=== PATIENT | male | born 1980 | race Caucasian/White ===

== ENCOUNTER → 2020-03-06 07:48 | Outpatient (BNVA) | payer SELFPAY | DX: Z76.89 Persons encountering health services in other specified circumstances (principal) ==

== ENCOUNTER → 2020-08-08 15:19 | Outpatient (BNVA) | payer OTHER, SELFPAY | PROVIDERS: PCP Internal Medicine Hypertension Specialist; Visit Provider Physician Assistant ==

== ENCOUNTER → 2020-08-09 07:47 | Outpatient (BNVA) | payer OTHER, SELFPAY | PROVIDERS: PCP Internal Medicine Hypertension Specialist; Visit Provider Surgery ==

== ENCOUNTER 2020-08-17 06:43 | Outpatient (REF) | payer OTHER, SELFPAY ==
--- NOTE | ~2020-08-17 | XR_ITS ---
EXAMINATION: XR CHEST CLINICAL INFORMATION: Morbid obesity due to excess calories. COMPARISON: None TECHNIQUE: Two views of the chest were obtained. FINDINGS: No significant abnormality is noted involving the heart, lungs, mediastinum, bony thorax or soft tissues. XR/XR chest 2V IMPRESSION: Unremarkable examination.
--- NOTE | 2020-08-17 07:20 | ECG_ITS ---
Test Reason : OBESITY Blood Pressure : / mmHG Vent. Rate : 073 BPM Atrial Rate : 073 BPM P-R Int : 140 ms QRS Dur : 098 ms QT Int : 398 ms P-R-T Axes : 019 025 016 degrees QTc Int : 438 ms Normal sinus rhythm Normal ECG No previous ECGs available Referred By: Eliceo Moran Electronically Signed By:ADORE VEGA MD
[2020-08-17 07:38] LABS: MANUAL DIFF FLAG NO
[2020-08-17 07:45] LABS: Basophils Percent Auto 0.6 % (0-2); Eosinophils Absolute Auto 0.1 X10*3/uL (0.0-0.4); Eosinophils Percent Auto 1.3 % (0-4); Hematocrit 49.3 % (42-52); Hemoglobin 16.5 g/dl (14.0-18.0); Imm Gran Abs Auto 0.14 X10*3/uL (0.00-0.03); Lymphocytes Absolute Auto 2.7 X10*3/uL (1.2-4.9); Lymphocytes Percent Auto 38.2 % (20-40); Mean Corpuscular HGB Conc 33.5 g/dl (31.0-36.0); Mean Corpuscular Hemoglobin 29.6 pg (27.0-33.0); Mean Corpuscular Volume 88.4 fL (80-98); Mean Platelet Volume 11.4 fL (9.4-12.4); Monocytes Absolute Auto 0.7 X10*3/uL (0.1-1.2); Monocytes Percent Auto 9.3 % (2-11); Neutrophils Absolute Auto 3.4 X10*3/uL (2.0-8.3); Neutrophils Percent Auto 48.6 % (45-73); Platelet Count 118 X10*3/uL (160-400); Red Blood Count 5.58 X10*6/uL (4.60-5.80); Red Cell Distribution Width 12.8 % (11.0-16.0)
[2020-08-17 07:49] LABS: Estimated Average Glucose 111 mg/dL; Hemoglobin A1C 152.5867 umol/L; Hemoglobin A1c % 5.5 %
[2020-08-17 08:07] LABS: Alanine Aminotransferase 22 U/L (0-40); Albumin Level 4.3 g/dL (3.5-5.0); Alkaline Phosphatase 71 U/L (39-117); Anion Gap 14 (12-20); Aspartate Amino Transferase 18 U/L (5-37); Bilirubin Total 1.4 mg/dL (0.0-1.0); Blood Urea Nitrogen 22 mg/dL (9-16); C Reactive Protein 0.86 mg/dL (< or = 0.50); Calcium 9.3 mg/dL (8.4-10.2); Carbon Dioxide 25 mmol/L (22-29); Chloride 103 mmol/L (96-108); Cholesterol 202 mg/dL; Estimated Glomerular Filt Rate > 60; Glucose Random 99 mg/dL (60-115); HDL Cholesterol 37 mg/dL; Iron 81 mcg/dL (45-160); LDL Cholesterol Calculated 129 mg/dl; Percent Iron Saturation 28 % (15-50); Sodium 138 mmol/L (135-145); Total Iron Binding Capacity 291 mcg/dL (228-428); Triglycerides 182 mg/dL; Unsaturated Iron Binding 210 ug/dL
[2020-08-17 08:34] LABS: TSH reflex Free T4 1.31 uIU/mL (0.32-4.0); Vitamin D 25-OH Total 20.6 ng/mL (>30)
[2020-08-17 09:14] LABS: Ferritin 610 ng/mL (20-250)
[2020-08-17 09:24] LABS: Folate 8.5 ng/mL (> or = 4.0); Vitamin B12 254 pg/mL (200-900)
[2020-08-18 12:43] LABS: H Pylori Breath Test NOT DETECTED (NOT DETECTED)
[2020-08-18 15:57] LABS: Calcium (PTHI) 9.3 mg/dL (8.6-10.3); PTHI 61 pg/mL (14-64)
[2020-08-21 06:12] LABS: Vitamin B1 9 nmol/L (8-30)
[2020-08-21 17:06] LABS: Zinc 81 mcg/dL (60-130)
[2020-08-23 01:22] LABS: Vitamin A 43 mcg/dL (38-98)
== END 2020-08-17 06:44 | disposition home or self-care (01) ==
LOC: HO.LAB 06:43
PROVIDERS: PCP Internal Medicine; Visit Provider Surgery
DX: E66.01 Morbid (severe) obesity due to excess calories (principal); I10 Essential (primary) hypertension; G47.30 Sleep apnea, unspecified
CPT/HCPCS: 36415; 71046; 80053; 80061; 82306; 82607; 82728; 82746; 83013; 83036; 83525; 83540; 83970; 84425; 84443; 84590; 84630; 85025; 86140; 93005

== ENCOUNTER → 2020-08-23 15:02 | Outpatient (BNVA) | payer OTHER, SELFPAY | PROVIDERS: PCP Internal Medicine; Visit Provider Physician Assistant ==

== ENCOUNTER → 2020-08-31 15:11 | Outpatient (BNVA) | payer OTHER, SELFPAY | PROVIDERS: PCP Internal Medicine Hypertension Specialist; Referring Provider Internal Medicine; Visit Provider Dietitian, Registered | DX: E66.01 Morbid (severe) obesity due to excess calories (principal); Z68.43 Body mass index [BMI] 50.0-59.9, adult | CPT/HCPCS: 97802 ==

== ENCOUNTER → 2020-09-15 12:19 | Outpatient (BNVA) | payer OTHER, SELFPAY | PROVIDERS: PCP Internal Medicine; Referring Provider Internal Medicine; Visit Provider Surgery ==

== ENCOUNTER → 2020-09-27 08:13 | Outpatient (BNVA) | payer OTHER, SELFPAY | PROVIDERS: PCP Internal Medicine Hypertension Specialist; Visit Provider Dietitian, Registered | DX: E66.01 Morbid (severe) obesity due to excess calories (principal); I10 Essential (primary) hypertension; Z68.43 Body mass index [BMI] 50.0-59.9, adult | CPT/HCPCS: 97803 ==

== ENCOUNTER → 2020-10-06 07:03 | Outpatient (BNVA) | payer OTHER, SELFPAY | PROVIDERS: PCP Internal Medicine Hypertension Specialist; Visit Provider Surgery ==

== ENCOUNTER 2020-10-24 07:48 | Outpatient (REF) | payer OTHER, SELFPAY ==
--- NOTE | ~2020-10-24 | US_ITS ---
EXAMINATION: US COMPLETE ABDOMEN WITH LIVER ELASTOGRAPHY CLINICAL INFORMATION: Bariatric service evaluation. E66.01 COMPARISON: None. TECHNIQUE: Real-time imaging of the abdominal viscera. Noninvasive ultrasound liver fibrosis assessment is performed using Vandana ElastPQ point quantification shear wave elastography (pSWE) with a C5-2 MHz transducer. Multiple elastography samples are obtained. FINDINGS: PANCREAS: The visualized pancreas is normal in size and contour and there is no pancreatic ductal distention. The pancreatic tail is obscured by bowel gas and not completely imaged. ABDOMINAL AORTA: The proximal, middle, and distal aortic segments are normal in caliber. INFERIOR VENA CAVA: Visualized portions are normal. LIVER: Liver is normal in size and smooth in contour. There is mild increased hepatic parenchymal echogenicity suggesting hepatic steatosis. Minor focal sparing is seen subcapsular liver adjacent to gallbladder fossa. No focal parenchymal lesion. No intrahepatic ductal dilatation. The right lobe measures 17.0 cm in length. The left lobe measures 12.2 cm in length. Portal flow is towards the liver (hepatopetal). Shear wave liver elastography median stiffness is 1.41 m/s (reference: normal median stiffness is 1.3 m/s or less). IQR/median stiffness to assess sampling precision is 0.18 (reference: good quality data set is IQR/median stiffness of 0.15 or less). GALLBLADDER: Normal. The gallbladder is physiologically distended without evidence of stones, sludge, polyps, wall thickening or pericholecystic fluid. COMMON BILE DUCT: Borderline enlarged measuring 0.8 cm. No visible ductal calculus or sludge. No wall thickening. No intrahepatic ductal dilatation. RIGHT KIDNEY: Normal. No hydronephrosis. No renal calculi or focal parenchymal lesions. The kidney measures 12.6 cm in maximum dimension. LEFT KIDNEY: Normal. No hydronephrosis. No renal calculi or focal parenchymal lesions. The kidney measures 12.0 cm in maximum dimension. SPLEEN: Normal. The spleen measures 11.7 cm in maximum dimension. FREE FLUID: None. US/US abdomen comp w elastography IMPRESSION: 1. Liver normal in size and smooth in contour with increased echogenicity consistent with hepatic steatosis. 2. Liver elastography: In the absence of other known clinical signs, measurements rule out compensated advanced chronic liver disease. If there are known clinical signs, further testing may be needed for confirmation. 3. Mild enlargement common duct, 0.8 cm of doubtful significance. No intrahepatic ductal dilatation. Normal gallbladder. REFERENCE: Society of Radiologists in Ultrasound Liver Stiffness Thresholds (2020): LIVER STIFFNESS THRESHOLDS: *Liver Stiffness equal or less than 1.3 m/s: High probability of being normal. *Liver Stiffness less than 1.7 m/s: In the absence of other known clinical signs, rules out compensated advanced chronic liver disease. *Liver Stiffness 1.7-2.1 m/s: Suggestive of compensated advanced chronic liver disease but need further test for confirmation. *Liver Stiffness over 2.1 m/s: Rules in compensated advanced chronic liver disease. *Liver Stiffness over 2.4 m/s: Suggestive of clinically significant portal hypertension. QUALITY OF DATA SET: *IQR/Median value equal or less than 0.15 implies a quality data set. *IQR/Median value over 0.15 implies a poor quality data set. SIGNIFICANT CHANGE FROM PRIOR EXAM: Significant change if liver stiffness measurement is 10% or greater from prior exam. OTHER CONSIDERATIONS: The stage of liver fibrosis may be overestimated in the setting of acute hepatitis, liver inflammation, elevated liver function tests, hepatic vascular congestion, obstructive cholestasis, non-fasting state, and infiltrative diseases such as amyloidosis and lymphoma. In some patients with NAFLD, the liver stiffness thresholds for compensated advanced chronic liver disease may be lower. In causes other than viral hepatitis and NAFLD, liver stiffness thresholds are not well established.
--- NOTE | ~2020-10-24 | FL_ITS ---
EXAMINATION: XR GI SERIES CLINICAL INFORMATION: Moderate/severe obesity due to excess calories. COMPARISON: None TECHNIQUE: Routine upper GI air-contrast study was performed. FINDINGS: Following oral administration of thick barium and effervescent granules there is normal propagation of bolus from the oral cavity through the pharynx, esophagus into stomach without any evidence of obstruction, narrowing or stricture. On placing patient supine and prone lying the course, caliber and peristalsis of the stomach, duodenal bulb and the sweep is normal. The mucosal pattern of stomach and the duodenum is normal. FLUOROSCOPY TIME: 1.4 minutes DOSE AREA PRODUCT: 71.489 uGy-m2 (microgray-meter squared) FL/FL upper GI series IMPRESSION: Unremarkable upper GI air-contrast study.
== END 2020-10-24 07:49 | disposition home or self-care (01) ==
LOC: HO.US 07:48
PROVIDERS: Visit Provider Surgery
DX: Z01.818 Encounter for other preprocedural examination (principal); E66.01 Morbid (severe) obesity due to excess calories; K21.9 Gastro-esophageal reflux disease without esophagitis
CPT/HCPCS: 74240; 76705; 76981

== ENCOUNTER → 2020-10-31 08:06 | Outpatient (BNVA) | payer OTHER, SELFPAY | PROVIDERS: PCP Internal Medicine Hypertension Specialist; Visit Provider Dietitian, Registered | DX: E66.01 Morbid (severe) obesity due to excess calories (principal); Z68.43 Body mass index [BMI] 50.0-59.9, adult; Z71.3 Dietary counseling and surveillance | CPT/HCPCS: 97803 ==

== ENCOUNTER → 2020-11-15 07:08 | Outpatient (BNVA) | payer OTHER, SELFPAY | PROVIDERS: PCP Internal Medicine Hypertension Specialist; Visit Provider Surgery ==

== ENCOUNTER → 2020-12-11 08:05 | Outpatient (BNVA) | payer OTHER, SELFPAY | PROVIDERS: PCP Internal Medicine Hypertension Specialist; Visit Provider Surgery ==

== ENCOUNTER → 2021-01-01 12:44 | Outpatient (BNVA) | payer OTHER, SELFPAY | PROVIDERS: PCP Internal Medicine; Visit Provider Surgery ==

== ENCOUNTER 2021-01-11 07:28 | Outpatient (REF) | payer OTHER, SELFPAY ==
[2021-01-11 07:45] LABS: MANUAL DIFF FLAG NO
[2021-01-11 08:02] LABS: Basophils Percent Auto 0.3 % (0-2); Eosinophils Absolute Auto 0.1 X10*3/uL (0.0-0.4); Eosinophils Percent Auto 1.4 % (0-4); Hematocrit 49.4 % (42.0-52.0); Hemoglobin 16.6 g/dl (14.0-18.0); Imm Gran Abs Auto 0.08 X10*3/uL (0.00-0.03); Imm Gran Pct Auto 1.1 % (0.0-0.4); Lymphocytes Percent Auto 28.1 % (20-40); Mean Corpuscular HGB Conc 33.6 g/dl (31.0-36.0); Mean Corpuscular Hemoglobin 29.3 pg (27.0-33.0); Mean Corpuscular Volume 87.3 fL (80.0-98.0); Mean Platelet Volume 10.4 fL (9.4-12.4); Monocytes Absolute Auto 0.7 X10*3/uL (0.1-1.2); Monocytes Percent Auto 9.9 % (2-11); Neutrophils Percent Auto 59.2 % (45-73); Platelet Count 183 X10*3/uL (160-400); Red Blood Count 5.66 X10*6/uL (4.60-5.80); Red Cell Distribution Width 12.7 % (11.0-16.0); White Blood Count 7.3 X10*3/uL (4.8-10.8)
[2021-01-11 08:12] LABS: INTERNATIONAL NORM RATIO 1.2 (0.9-1.1); Prothrombin Time 13.6 SEC (9.9-13.0)
[2021-01-11 08:15] LABS: Partial Thromboplastin Time 45.1 SEC (24.1-38.0)
[2021-01-11 08:18] LABS: Estimated Average Glucose 100 mg/dL; Hemoglobin A1c % 5.1 %
[2021-01-11 08:27] LABS: Alanine Aminotransferase 22 U/L (0-40); Albumin Level 4.5 g/dL (3.5-5.0); Alkaline Phosphatase 74 U/L (39-117); Anion Gap 13 (12-20); Aspartate Amino Transferase 15 U/L (5-37); Bilirubin Total 1.5 mg/dL (0.0-1.0); Blood Urea Nitrogen 17 mg/dL (9-16); C Reactive Protein 0.79 mg/dL (< or = 0.50); Calcium 9.8 mg/dL (8.4-10.2); Carbon Dioxide 31 mmol/L (22-29); Chloride 100 mmol/L (96-108); Cholesterol 124 mg/dL; Estimated Glomerular Filt Rate > 60; Glucose Random 89 mg/dL (60-115); HDL Cholesterol 32 mg/dL; LDL Cholesterol Calculated 71 mg/dl; Potassium 3.9 mmol/L (3.3-5.1); Sodium 140 mmol/L (135-145); Total Protein 6.9 g/dL (6.5-8.0); Triglycerides 106 mg/dL
[2021-01-11 08:55] LABS: TSH reflex Free T4 1.37 uIU/mL (0.32-4.0)
[2021-01-11 09:57] LABS: Insulin 7 uU/mL (2-29)
== END 2021-01-11 07:29 | disposition home or self-care (01) ==
LOC: HO.LAB 07:28
PROVIDERS: PCP Internal Medicine; Visit Provider Surgery
DX: E66.01 Morbid (severe) obesity due to excess calories (principal); G47.30 Sleep apnea, unspecified; I10 Essential (primary) hypertension
CPT/HCPCS: 36415; 80053; 80061; 83036; 83525; 84443; 85025; 85610; 85730; 86140; 86850; 86900; 86901

== ENCOUNTER → 2021-01-12 13:14 | Outpatient (BNVA) | payer OTHER, SELFPAY | PROVIDERS: PCP Internal Medicine; Referring Provider Internal Medicine; Visit Provider Physician Assistant ==

== ENCOUNTER 2021-01-18 06:16 | Inpatient (IN) | payer OTHER, SELFPAY ==
[2021-01-05 10:57] VITALS: BMI 50.9
--- NOTE | 2021-01-15 14:35 | MHC.SHP ---
Pre-Procedural Eval Section A Date of Service: 01/15/21 The patient is an INPATIENT: Yes The History & Physical has been completed within 30 days and I have reviewed it.: Yes Section B Chief Complaint: Morbid Severe obesity Relevant Family History (Specify if Yes): No Relevant Social History: None Present Medications: None Medical History: No relevant PMH History of Previous Operations: No relevant previous surgery Allergies: Allergies Allergy/AdvReac Type Severity Reaction Status Date / Time No Known Allergies Allergy Verified 01/01/21 12:55 Review of Systems Sugical H&P ROS: Negative: Constitution, Cardiovascular, Respiratory, Neurological, Psychiatric, Hem-Onc, Allergic/Immunologic, Gastrointestinal, Genitourinary, Musculoskeletal, Integumentary, Endocrine and Eyes/Ears/Nose/Throat Exam Surgical H&P Exam: Normal: HEENT, Normal: Heart, Normal: Lungs, Normal: Extremities, Normal: Abdomen, Normal: Skin and Normal: Neurological Plan Diagnosis/Plan: Unchanged I have reviewed the history and physical and performed a pertinent physical examination on my patient. No changes have occurred unless specified.
[2021-01-18] VITALS (13 sets, daily range): BP systolic 132–158; BP diastolic 66–99; PULSE 55–80; RESP 16–22; TEMP 36.2–36.8; O2SAT 95–100
[2021-01-18 06:54] LABS: COVID-19 Test Negative (Negative)
[2021-01-18] MEDS: Lactated Ringers 1,000 ML 999 ML IV (06:57)
--- NOTE | 2021-01-18 07:15 | P.CONAN_ITS ---
HPI - Anesthesia Eval Consult details Narrative: 40 yo male patient for EGD, sleeve gastrectomy, possible diaphrag matic hernia repair, possible ventral hernia repair, possible open PMFSH Active Problems Active Problems: All Active Problems (Updated 01/05/21 @ 11:02 by Meg Lee RN) Vitamin B12 deficiency (Acute) Vitamin D deficiency (Acute) Adjustment disorder, unspecified (Acute) Sleep apnea (Acute). Did not follow up on starting CPAP use Hypertension (Acute) Morbid obesity (Acute) Cough for a few days, today productive of yellowish/greenish sputum. Daughter had URI over last week but resolved. Denies any fever or malaise. Cough worse in mornings. No h/o allergies. Lungs clear. Past Medical History Medical History (Updated 01/18/21 @ 10:47 by Eliceo Moran MD) COVID-19 vaccine series completed Hypertension Morbid obesity On beta dianna at home Sleep apnea Steatosis, liver Family History Family History Mother Hypertension Diabetes Breast cancer Father Hypertension Hyperlipidemia Brother No problems noted. Sister No problems noted. Daughter No problems noted. Family history of problems with anesthesia: No Surgical History Surgical History (Updated 01/18/21 @ 10:31 by Eleanor Devi PA-C) No significant past surgical history History of Problems with Anesthesia: No Social History Social History Are you a primary specialist wound care to a significant other at home: No Do you presently have visiting nurse or other home services: No Alcohol intake: never Patient Tobacco Use Status: Never used Tobacco Use of substances other than those prescribed or required for medical reasons: No Have you been hit, kicked, punched, or otherwise hurt by someone within the past year? If so, by whom?: No Are you DNR?: No Advance Directives: No Advance Directives Information Provided: Yes (Mailed w/ Pre-op instructions) Advance Directives on File: No Recently lost weight without trying: No How much weight loss: 34pounds or more Eating poorly because of decreased appetite: No Nutrition screen score: 4 Nutrition Risks: No Nutritional Risk Meds Allergies Allergy/AdvReac Type Severity Reaction Status Date / Time No Known Allergies Allergy Verified 01/01/21 12:55 Active Medications: Current Medications Lactated Ringer's (Lr) 1,000 mls @ 999 mls/hr IV .Q1H1M LEANNE Stop: 01/18/21 07:30 Last Admin: 01/18/21 06:57 Dose: 999 mls/hr Documented by: Home Medications Medication Instructions Recorded Confirmed Last Taken Type losartan 25 mg tablet 25 mg PO DAILY 08/09/20 01/05/21 Unknown History metoprolol tartrate 50 mg tablet 50 mg PO DAILY 08/09/20 01/05/21 01/18/21 History Exam Exam Date and Time: January 18, 2021 0715 Height,Weight and Vital Signs: Height 5 ft 11 in Weight 165.561 kg Pertinent Lab Results Pertinent Lab Results: Laboratory Tests 01/11/21 01/18/21 07:45 06:16 COVID-19 ([facility]) Negative COVID-19 Clin Com See Note Blood Type O Positive Antibody Screen NEGATIVE Labs 01/11/21 Reviewed XRay Report Date of Service: 08/17/20 Procedure(s): XR chest 2V FINDINGS: No significant abnormality is noted involving the heart, lungs, mediastinum, bony thorax or soft tissues. Date of Service: 08/17/20 Procedure(s): ECG 12 lead EKG? Normal sinus rhythm Normal ECG No previous ECGs available ? Narrative Narrative: Patient with ? early URI vs allergies. Lungs CTAB.Dr Moran aware and wishes to proceed. Airway Mallampati Class: II TM Dist: >3cm Neck ROM: Full Heart: RRR Lungs: CTAB Assessment and Plan Assessment Anesthesia Assessment: Anesthesia Plan Discussed and Chart Reviewed Final Anesthetic Review Family History of Problems with Anesthesia: No History of Problems with Anesthesia: No NPO: Yes ASA Class: III Final Preanesthetic Review: No Changes in Pt Med Stat, Meds/Allgs Chart Reviewed, Consent Obtained/Reviewed and Anes Risks/Benef Reviewed Patient Risk: Intermediate Procedure Risk: Intermediate Assessment/Block/Sedation in SS: Assess/Block/Sedation-SS Anesthetic Plan Anesthetic Plan: GA Disposition: Standard PACU and Inp. Admit - Standard Bed
--- NOTE | 2021-01-18 10:35 | PM.DS ---
DS: Providers Provider Date of Service: 01/19/21 Date of admission: 01/18/21 06:16 Primary care physician: Marnie Alonso MD DS: Summary Hospital Course Hospital Course: ADMITTING DIAGNOSIS: morbid obesity, RUPERTO, HTN DISCHARGE DIAGNOSIS: same, s/p laparoscopic sleeve gastrectomy PAST SURGICAL HISTORY: none PROCEDURE: upper endoscopy, laparoscopic sleeve gastrectomy DISCHARGE SUMMARY: History of Present Illness: The patient is a 40 year-old woman with a BMI of 60.5 kg/m2 and associated co-morbidities as described above. The patient had extensive work-up,lost 68.4 lbs preoperatively and was electively scheduled for laparoscopic, possible open sleeve gastrectomy and gastropexy. Risks and complications of the surgery were discussed with the patient in advance, particularly the possibility of , pulmonary embolism, anastomotic leak, bleeding, bowel injury, GERD, cardiac, renal or pulmonary complications. The patient understood all the risks and was in agreement with the surgical plan. Hospital Course: The patient underwent an uneventful laparoscopic sleeve gastrectomy with gastropexy on the day of admission. Postoperatively, the patient was transferred to the surgical floor. The patient received IV Acetaminophen and IV dilaudid for pain control. Patient was started on bariatric phase 1 diet POD #0. On postoperative day one, the patient was feeling well without nausea, vomiting, fevers, or tachycardia. The patient had some mild incisional pain and the abdomen was soft. On the morning of postoperative day one, the patient was continued on 1 ounce of water or ice every half hour. During the day, the patient did fairly well, having some incisional pain, but able to ambulate adequately and to tolerate liquids well. Since the patient is doing well, we decided that the patient was ready to be discharged. The patient was given instructions to follow-up with me next week and to call my office for any fever over 101, persistent abdominal pain, nausea, vomiting, GERD, symptoms of DVT such as calf tenderness, or leg swelling, or pulmonary embolism such as chest pain or shortness of breath. The patient was also instructed to drink 40-60 ounces of liquids per day using the 1-ounce cups. The patient had been given prescriptions for Tylenol for pain, Zofran prn for nausea, and pantoprazole and carafate previously. The patient was encouraged to ambulate and use the incentive spirometer. The patient was allowed to shower, but no baths, and encouraged to stay active at home. All of these instructions were given to the patient personally. All questions were answered and the patient understood all instructions, the instructions were also given to the patient in print. Time Spent with Patient Time attestation: Total time spent providing and/or coordinating discharge services: Discharge coordination time: Less than 30 minutes Quality: Stroke Does the patient have a stroke diagnosis?: No Physical Exam Vital Signs: Vital Signs: Last Vital Signs Temp 97.1 F 01/18/21 07:22 Pulse 75 01/18/21 07:22 Resp 18 01/18/21 07:22 BP 146/85 H 01/18/21 07:22 Pulse Ox 96 01/18/21 07:22 Body Mass Index 50.9 DS: Data Data Completed and Pending Pending studies at discharge: Pending at discharge 01/18/21 10:08 Surgical [PTH] Routine Labs on day of discharge: Laboratory Results - last 24 hr 01/18/21 06:16 COVID-19 ([facility]) Negative COVID-19 Clin Com See Note Discharge Plan Discharge Anticipated Discharge Date/Time: 01/19/21 10:31 Patient Disposition: Home, Self-Care Discharge Diagnosis: s/p sleeve gastrectomy Referrals: Marnie Alonso MD [Primary Care Provider] - 1 Week Discharge Medications: Continued metoprolol succinate 100 mg tablet extended release 24 hr 1 tab PO DAILY RF: 0 losartan 25 mg tablet 25 mg PO DAILY RF: 0 pantoprazole 40 mg tablet,delayed release (DR/EC) 40 mg PO DAILY Qty: 30 RF: 2 sucralfate 100 mg/mL suspension 10 ml PO BID Qty: 400 RF: 2 ondansetron HCl [Zofran] 4 mg tablet 4 mg PO Q12H Qty: 20 RF: 0 Discontinued mecobalamin (vitamin B12) 1,000 mcg tablet,disintegrating 1,000 mcg sublingual DAILY Qty: 30 RF: 2 cholecalciferol (vitamin D3) 125 mcg (5,000 unit) capsule 125 mcg PO DAILY Qty: 30 RF: 2 polyethylene glycol 3350 [Miralax] 17 gram powder in packet 17 g PO DAILY Qty: 14 RF: 0 Discharge Orders: Discharge Order (Routine); Ordered 01/19/21 Ordered By: Eliceo Moran Diet: other Activity on Discharge: No heavy lifting Stand Alone Forms: Patient Portal Discharge page Care Plan Goals: weight loss Health Concerns: morbid obesity Plan of Treatment: No tub baths, sex or returning to work until discussed at first post op appointment. No exercise, alcohol, tobacco or illegal drug use. Continue to use incentive spirometer hourly while awake. Walk in home for 5- 10 minutes every 2 hours during the first week. Continue phase 1 diet today and start phase 2 diet tomorrow morning. Follow all instructions in the bariatric handbook and call with any questions. 1. Please call your doctor or come back to the emergency room should any new symptoms arise. 2. You will receive a courtesy call from [facility] 24-48 hours after discharge. 3. Activity: abstain from alcohol, practice limited stair climbing, no bending, no driving, no exercise, no illicit substances, no lifting, no sex, no tub bath, no work. 4. Diet: continue as discussed with Dr. Moran. 5. Dressing Change/Wound Care: Do not change or remove surgical dressings unless they are wet or soiled. 6. Call your doctor if: - Your temperature exceeds 101.5 F - You experience excessive pain or swelling - You have an unexpected reaction to medication - You have excessive bleeding - You experience continued vomiting/nausea - Your incision begins to separate - Your incision shows signs of infection such as increased redness, swelling, excessive pain, heat, or drainage (light blood or clear fluid is normal) 7. General instructions: No lifting greater than 5 lbs for the next 4 weeks[address] driving within 24 hours of taking narcotic pain medications. If you do not move your bowels in the next 2 days, please take milk of magnesia over the counter. Please follow the post op diet and do not advance your diet until you are seen in the office in about 2 weeks. Please walk around your home every hour or two to prevent blood clots from forming in your legs. You do not need to wake from sleeping to walk. Please sleep in a bed or couch to prevent kinking at the hips and knees. Please take your incentive spirometer (your lung computer numerical control machinist) home with you and use it for the next few days to prevent pneumonias. You may shower, no hot tubs, baths or swimming pools. Please call the office with any questions or concerns such as increasing abdominal pain, fever, chills, shortness of breath, chest pain, leg pain or swelling, or redness or drainage from your incisions. Do not hesitate to contact the office with any questions at . The patient's medical history has been reviewed and they are considered low risk for post op DVT and therefore DVT prophylaxis is not considered necessary. Travel after surgery was reviewed. The patient has not disclosed any travel plans during the first 30 days after surgery and they have been advised that within the first 30 days after surgery any bus, plane, train or car travel over 2 hours in duration is contraindicated due to the possibility of developing blood clots from immobility. Any travel, needs to include periods of ambulation of 10 minutes in duration every 2 hours. The patient was instructed to discuss any plans for travel during this period with their bariatric surgeon. Assessment: stable post op sleeve gastrectomy Discharge Date/Time: 01/19/21 10:07
[2021-01-18] MEDS: HYDROmorphone HCl 0.5 MG/0.5 ML SYRINGE 0.25 MG IVPUSH ×4 (10:40→22:09)
--- NOTE | 2021-01-18 10:41 | P.BOP_ITS ---
Brief Operative Note Date of Service: 01/18/21 Pre-op diagnosis: Morbid obesity with comorbidities (see below) Post-op diagnosis: same (& congenital abdominal adhesions) Procedure: INITIAL PATIENT BMI ON PRESENTATION AT OUR OFFICE: 60.5 kg/m2 LAST BMI BEFORE SURGERY: 49.2 kg/m2 COMORBIDITIES: sleep apnea on CPAP, hypertension, liver steatosis The patient participated in an intensive weekly lifestyle ?intervention and exercise program during which the patient ?has lost between the initial office visit and the last preoperative visit 81.2lbs, or 18.7% of initial actual body weight. The patient met the BMI-criteria for bariatric surgery based on the BMI on initial presentation. The patient should not be penalized for achieving such weight loss because ?it is not sustainable long-term without surgical intervention and it was achieved in preparation for bariatric surgery ?under my direction and based on my published research ([email or web address] and? [email or web address]/pdf ) ?that a 10% preoperative weight loss improves long-term weight loss after surgery and reduces perioperative complications.? Insurance carriers such as [facility] have endorsed my recommendations ?and have included in their policies criteria to include a 10% preoperative weight loss requirement. PROCEDURE: Esophago-gastroscopy, laparoscopic repair of incarcerated diaphragmatic hernia, laparoscopic lysis of adhesions, laparoscopic sleeve gastrectomy and laparoscopic gastropexy INDICATIONS: This is a 40 year-old male who was electively scheduled for laparoscopic, possibly open sleeve gastrectomy. The risks and complications of the procedure were discussed with the patient in advance, particularly the possibility of ; pulmonary embolism; staple line leak; bleeding; GERD; cardiac, pulmonary, or renal complications; as well as long-term problems such as insufficient weight loss, vitamin deficiency, strictures, or ulcers. The patient understood all the risks, and was in agreement to proceed with surgery. DESCRIPTION OF PROCEDURE: After informed consent was obtained from the patient, the patient was given preoperative antibiotics, and was transferred to the operating room. After successful induction of general anesthesia, pneumatic compressive devices were placed on both lower extremities. An upper endoscopy was performed next. The oropharynx and esophagus appeared to be within normal limits. There was no diaphragmatic hernia present, consistent with the findings of the preoperative upper GI. The stomach was entered. Then after all fluid and air were suctioned and the stomach was fully decompressed, the scope was withdrawn and secured in the mid esophagus. The patient was then prepped and draped in the usual sterile manner, and abd ominal access was established at the right upper quadrant with the Lila technique. A 12 mm blunt port was inserted, and the abdomen was insufflated with CO2 to a pressure of 15 mmHg. Under direct visualization, additional ports were placed, specifically two 5 mm Versi-step ports to the left upper quadrant, and a 5 mm Versi-Step port to the right upper quadrant. 1% lidocaine plain was used to infiltrate all port sites as well as all fascia defects. Using the EndoClose suture passer device, I placed a #1 Polysorb tie across the falciform ligament in order to retract it up against the abdominal wall and prevent injury of the ligament with our instruments during the procedure. Following that, the patient was placed in a steep reverse Trendelenburg position. An additional 5 mm port was placed to the right flank for the Mediflex retractor that was used to retract the left lobe of the liver. The gastro-esophageal fat pad was opened with the ultrasonic device (Thunderbeat, Olympus) and the anterior esophagus and hiatus were exposed. The angle of His was opened with the ultrasonic device the fundus of the stomach from any diaphragmatic and splenic attachments. I then opened the gastrocolic ligament between the transverse colon and the greater curvature of the stomach with the ultrasonic device to enter the lesser sac and facilitate the ligation of the short gastric vessels. I started at a mid-point along the greater curvature and using the Thunderbeat, all short gastric vessels were divided all the way to the angle of His until the left britni was completely dissected at its entirety. I then divided the gastro-colic ligament distally to a distance of about 3-4 cm proximal to the esophagus. There were extensive congenital adhesions between the pancreas and posterior gastric wall. Those were lysed completely with the ultrasonic device. Adhesiolysis took approximately 45 min to complete.? The stomach was then divided transversely with one Endo JONATHAN-45 purple and two JONATHAN-45 orange and three JONATHAN-60 articulating orange loads using the AEON stapler and loads. Every effort was made that the gastric sleeve had a tubular shape and an even caliber throughout. Once the sleeve resection was completed, the staple line of the gastric sleeve was reinforced with Hemoclips. The resected stomach was retrieved without difficulty from the Lila port. A gastropexy was then performed in order to prevent postoperative GERD and partial gastric volvulus. Several interrupted 2.0 Surgidac sutures were placed between the sleeve's staple line and the previously divided greater omentum and gastro-colic ligament using the Endo-Stitch device. ?An upper endoscopy was performed. There was no narrowing at the GE junction. The scope was easily advanced all the way to the pylorus which was clearly visualized. There was no narrowing anywhere and the sleeve's caliber was even throughout. The sleeve's staple line was inspected and there was no evidence of ischemia, bleeding or dehiscence. At that point the gastroscope was withdrawn from the patient?s mouth while we were decompressing the bowel and the stomach from any remaining air. I looked into the lesser sac to see how the sleeve was situating and it was situating well. There was no bleeding from the staple line, spleen, or short gastric vessels. The Mediflex retractor was removed, and the undersurface of the liver was inspected and there was no bleeding. The patient was placed in supine position. I closed the fascial defect of the 12 mm port site with a figure of eight #1 Polysorb suture. Then 100 cc 0.25 % Marcaine plain with 10 mg of Dexamethasone were used to infiltrate the fascial closure as well as all skin incisions. At this point, the abdomen was deflated, all ports were removed under direct visio n, and no bleeding was noted from any of the port sites. The skin incisions were irrigated with saline and were closed with 4-0 absorbable monofilament sutures. Steri-Strips and OpSites were used to cover all incisions. The patient was extubated and was transferred in stable condition to the recovery room for further care. I was present and performed all nieto parts of the procedure. Ms. Devi was the acute care certified nursing assistant. There were no residents to assist with this case. Andrea Moran MD, PhD, FACS Surgeon: Eliceo Moran MD Anesthesia: GETA, local and other (TAP block) Was an Breast Splitter used for this Procedure?: Yes Breast Splitter: Eleanor Devi Estimated blood loss (mL): 10 IV fluids (mL): 3,000 Urine output (mL): 0 (No [place] to record) Pathology: other (Stomach) Condition: stable Disposition: PACU
[2021-01-18] MEDS: Famotidine/PF 20 MG/2 ML VIAL IVPUSH ×2 (10:42→20:38)
--- NOTE | 2021-01-18 10:45 | PM.PNGS ---
Subjective Subjective Date of Service: 01/19/21 Interval history: Patient has mild incisional pain, but was able to ambulate and use the incentive spirometer. He is tolerating phase 1 bariatric diet Physical Exam Vital Signs: Vital Signs: Last Vital Signs Temp 97.1 F 01/18/21 07:22 Pulse 75 01/18/21 07:22 Resp 18 01/18/21 10:40 BP 146/85 H 01/18/21 07:22 Pulse Ox 96 01/18/21 07:22 Body Mass Index 50.9 GI: Inspection: Yes normal to inspection and Yes incision (clean, dry and intact) Extrem: Right lower extremity: normal to inspection (no calf tenderness) Left lower extremity: normal to inspection (no calf tenderness) Procedures Date of Service Date of Service: 01/19/21 Progress Note: A&P Assessment and plan (1) S/P laparoscopic sleeve gastrectomy: Status: Acute Assessment and Plan: s/p laparoscopic sleeve gastrectomy, lysis of adhesions and gastropexy Doing well Check am labs. If OK, will discharge home? (2) Morbid obesity: Status: Acute (3) Hypertension: Status: Acute (4) Sleep apnea: Status: Acute (5) Steatosis, liver: Status: Acute (6) Congenital intra-abdominal adhesions: Status: Acute Fall Risk Details Current Medications: Current Medications Albuterol Sulfate (Albuterol Sulfate (0.083%) 2.5 Mg/3 Ml Vial.Neb) 2.5 mg INHALE ONCE PRN PRN Reason: Wheezing Famotidine (Famotidine/Pf 20 Mg/2 Ml Vial) 20 mg IVPUSH BID [facility] Last Admin: 01/18/21 10:42 Dose: 20 mg Documented by: Fentanyl (Fentanyl Citrate/Pf 100 Mcg/2 Ml Vial) 25 mcg IVPUSH Q5M PRN; Protocol PRN Reason: Pain, Moderate (Pain Scale 4-6 Hydromorphone HCl (Hydromorphone Hcl 0.5 Mg/0.5 Ml Syringe) 0.25 mg IVPUSH Q5M PRN; Protocol PRN Reason: Pain, Severe (Pain Scale 7-10) Last Admin: 01/18/21 10:40 Dose: 0.25 mg Documented by: Lactated Ringer's (Lr) 1,000 mls @ 100 mls/hr IVCONT .Q10H LEANNE Promethazine HCl 6.25 mg/ (Sodium Chloride) 50.25 mls @ 201 mls/hr IV ONCE PRN PRN Reason: Nausea and Vomiting Lactated Ringer's (Lr) 1,000 mls @ 100 mls/hr IVCONT .Q10H LEANNE Metoclopramide HCl (Metoclopramide Hcl 10 Mg/2 Ml Vial) 10 mg IVPUSH Q6H PRN PRN Reason: Nausea Ondansetron HCl (Ondansetron Hcl 4 Mg/2 Ml Vial) 4 mg IVPUSH ONCE PRN PRN Reason: Nausea and Vomiting Time Spent With Patient Time: Total time spent is greater than 50% in coordination of care (as documented) at patient's floor/unit and/or counseling patient: Time with patient: less than 15 minutes Quality Stroke Does the patient have a stroke diagnosis?: No VTE Prior VTE?: No VTE Risk Level:: Surgical - moderate VTE Device Contraindication: N/A - Device Ordered VTE Drug Contraindication: Treatment Not Indicated
[2021-01-18 11:16] LABS: Hematocrit 47.3 % (42.0-52.0); Hemoglobin 15.5 g/dl (14.0-18.0)
[2021-01-18 11:30] LABS: Anion Gap 14 (12-20); Blood Urea Nitrogen 13 mg/dL (9-16); Calcium 9.2 mg/dL (8.4-10.2); Carbon Dioxide 28 mmol/L (22-29); Chloride 98 mmol/L (96-108); Creatinine Clr Calc Pharmacy 151.6; Estimated Glomerular Filt Rate > 60; Glucose Random 135 mg/dL (60-115); Potassium 4.4 mmol/L (3.3-5.1); Sodium 136 mmol/L (135-145)
[2021-01-18] MEDS: Lactated Ringers 1,000 ML 100 ML IVCONT ×2 (11:46→20:45)
[2021-01-18] MEDS: ceFAZolin Sodium/Dextrose,Iso 2 GM/50 ML PIGGYBACK IV (13:21)
[2021-01-18] MEDS: Losartan Potassium 25 MG TABLET PO (16:02)
[2021-01-18] MEDS: ondansetron HCL 4 MG/2 ML VIAL IVPUSH (20:37)
[2021-01-19] VITALS: BP 141/81; PULSE 68; RESP 17; TEMP 36.6; O2SAT 94
[2021-01-19 04:00] VITALS: BP 144/74; PULSE 52; RESP 17; TEMP 36.3; O2SAT 96
[2021-01-19] MEDS: ondansetron HCL 4 MG/2 ML VIAL IVPUSH (04:11)
--- NOTE | 2021-01-19 04:53 | PC.NURSE ---
Pt misunderstood the surgeon regarding how much to drink and document. When reviewing expectations at the beginning of the shift, we discovered the discrepancy. Pt has been maintaining his PO check list and drinking 30ml/30 mins WA. I charted it in the computer under I&O's. Pt ambulated in the handley with me at the beginning of the shift with no issues. Pt told to ambulate again during the night when he woke up to go to the bathroom. Pt ambulated several times around the nurses station. IV fluids and IV tylenol as ordered. Pt voiding without issues. Five 2X2 dressings on abdomen-CD&I. Abdominal binder in place. Pt obtains a volume of 1500 on IS and encouraged to use Q1 hour WA-pt states he has. See MAR for pain mgmt. No c/o pain/nausea at this time. Will continue to monitor.
[2021-01-19 05:36] LABS: MANUAL DIFF FLAG NO
[2021-01-19 05:43] LABS: Basophils Percent Auto 0.1 % (0-2); Eosinophils Percent Auto 0.1 % (0-4); Hematocrit 44.3 % (42.0-52.0); Hemoglobin 14.7 g/dl (14.0-18.0); Imm Gran Abs Auto 0.11 X10*3/uL (0.00-0.03); Imm Gran Pct Auto 0.9 % (0.0-0.4); Lymphocytes Absolute Auto 1.6 X10*3/uL (1.2-4.9); Mean Corpuscular HGB Conc 33.2 g/dl (31.0-36.0); Mean Corpuscular Hemoglobin 29.1 pg (27.0-33.0); Mean Corpuscular Volume 87.5 fL (80.0-98.0); Mean Platelet Volume 10.2 fL (9.4-12.4); Monocytes Absolute Auto 1.1 X10*3/uL (0.1-1.2); Monocytes Percent Auto 8.7 % (2-11); Neutrophils Absolute Auto 9.4 x10*3/uL (2.0-8.3); Neutrophils Percent Auto 77.2 % (45-73); Platelet Count 178 X10*3/uL (160-400); Red Blood Count 5.06 X10*6/uL (4.60-5.80); Red Cell Distribution Width 13.3 % (11.0-16.0); White Blood Count 12.1 X10*3/uL (4.8-10.8)
[2021-01-19 05:59] LABS: Anion Gap 16 (12-20); Blood Urea Nitrogen 12 mg/dL (9-16); Calcium 9.2 mg/dL (8.4-10.2); Carbon Dioxide 24 mmol/L (22-29); Chloride 102 mmol/L (96-108); Creatinine Clr Calc Pharmacy 170.2; Estimated Glomerular Filt Rate > 60; Glucose Random 99 mg/dL (60-115); Potassium 4.4 mmol/L (3.3-5.1); Sodium 138 mmol/L (135-145)
[2021-01-19] MEDS: Lactated Ringers 1,000 ML 100 ML IVCONT (06:35)
[2021-01-19] MEDS: Famotidine/PF 20 MG/2 ML VIAL IVPUSH (07:31)
[2021-01-19] MEDS: Losartan Potassium 25 MG TABLET PO (07:31)
[2021-01-19] MEDS: Metoprolol Succinate ER 100 MG TAB.ER.24H PO (07:31)
[2021-01-19 08:00] VITALS: BP 135/73; PULSE 52; RESP 18; TEMP 36.2; O2SAT 99
--- NOTE | 2021-01-19 08:15 | HO.POSTANES ---
Post Anesthesia Evaluation Post Anesthesia Evaluation Vital Signs: Vital Signs Temp Pulse Resp BP Pulse Ox 01/19/21 08:00 97.2 F 52 18 135/73 99 01/19/21 04:00 97.4 F 52 17 144/74 H 96 01/19/21 00:00 97.8 F 68 17 141/81 H 94 Anesthesia: General Endotracheal-GETA Mental Status: Awake Pain Control: Satisfactory Nausea/Vomiting: None Hydration: Adequate Anesthesia-Related Issues: No Anes. Related Issues
--- NOTE | 2021-01-19 08:45 | MHC.CM.PN ---
PATIENT IS FULLY INDEPENDENT WITH NO DME OR VNA SERVICES. IS HCP AND A COPY IS REQUESTED. PLAN IS FOR DISCHARGE HOME TODAY - SELF CARE. WILL PROVIDE TRANSPORTATION. RN AWARE OF PLAN. PATIENT IS FULLY VACCINATED AGAINST COVID-19 SECOND DOSE WAS IN JUNE 2020. HE REPORTS THAT HE IS DUE FOR HIS BOOSTER
== END 2021-01-19 10:07 | disposition home or self-care (01) | DRG 621 ==
LOC: HO.SSSA 10:33 → HO.S3 10:47
PROVIDERS: Physician Assistant; Admitting Provider Surgery; PCP Internal Medicine; Visit Provider Surgery
PROC: 0DB64Z3 Excision of Stomach, Percutaneous Endoscopic Approach, Vertical (ICD-10-PCS; CPT 43845; principal; 2021-01-18 07:30)
DX: E66.01 Morbid (severe) obesity due to excess calories (principal); K76.0 Fatty (change of) liver, not elsewhere classified; K66.0 Peritoneal adhesions (postprocedural) (postinfection); I10 Essential (primary) hypertension; G47.30 Sleep apnea, unspecified; Z99.89 Dependence on other enabling machines and devices; Z20.822 Contact with and (suspected) exposure to COVID-19; Z68.42 Body mass index [BMI] 45.0-49.9, adult; Z79.899 Other long term (current) drug therapy
CPT/HCPCS: 36415; 80048; 85014; 85018; 85025; 86850; 86900; 86901; 87635; 88307; 88342; 99024; A4649; J0131; J0690; J1100; J1170; J2250; J2405; J2550; J3010

== ENCOUNTER → 2021-01-24 07:53 | Outpatient (BNVA) | payer OTHER, SELFPAY | PROVIDERS: PCP Internal Medicine; Referring Provider Internal Medicine; Visit Provider Surgery ==

== ENCOUNTER → 2021-02-23 08:03 | Outpatient (BNVA) | payer OTHER, SELFPAY | PROVIDERS: PCP Internal Medicine; Visit Provider Surgery ==

== ENCOUNTER → 2021-03-23 08:17 | Outpatient (BNVA) | payer OTHER, SELFPAY | PROVIDERS: PCP Internal Medicine; Referring Provider Internal Medicine; Visit Provider Physician Assistant Surgical ==

== ENCOUNTER → 2021-03-30 07:56 | Outpatient (BNVA) | payer OTHER, SELFPAY | PROVIDERS: PCP Internal Medicine; Visit Provider Surgery ==

== ENCOUNTER → 2021-04-06 08:29 | Outpatient (BNVA) | payer OTHER, SELFPAY | PROVIDERS: PCP Internal Medicine; Referring Provider Internal Medicine; Visit Provider Physician Assistant ==

== ENCOUNTER → 2021-04-20 08:15 | Outpatient (BNVA) | payer OTHER, SELFPAY | PROVIDERS: PCP Internal Medicine; Visit Provider Physician Assistant ==

== ENCOUNTER → 2021-04-27 08:13 | Outpatient (BNVA) | payer OTHER, SELFPAY | PROVIDERS: PCP Internal Medicine; Referring Provider Internal Medicine; Visit Provider Physician Assistant ==

== ENCOUNTER → 2021-05-18 08:09 | Outpatient (BNVA) | payer OTHER, SELFPAY | PROVIDERS: PCP Internal Medicine; Visit Provider Physician Assistant Surgical ==

== ENCOUNTER → 2021-05-21 08:34 | Outpatient (BNVA) | payer OTHER, SELFPAY | PROVIDERS: PCP Internal Medicine; Visit Provider Surgery | DX: Z13.89 Encounter for screening for other disorder (principal) ==

== ENCOUNTER → 2021-06-18 08:16 | Outpatient (BNVA) | payer OTHER, SELFPAY | PROVIDERS: PCP Internal Medicine; Visit Provider Physician Assistant Surgical | DX: Z13.89 Encounter for screening for other disorder (principal) ==

== ENCOUNTER 2021-07-17 08:19 | Outpatient (REF) | payer OTHER, SELFPAY ==
[2021-07-17 09:18] LABS: MANUAL DIFF FLAG NO
[2021-07-17 09:51] LABS: Basophils Percent Auto 0.5 % (0-2); Eosinophils Absolute Auto 0.1 X10*3/uL (0.0-0.4); Hematocrit 44.7 % (42.0-52.0); Hemoglobin 14.9 g/dl (14.0-18.0); Imm Gran Abs Auto 0.02 X10*3/uL (0.00-0.03); Imm Gran Pct Auto 0.3 % (0.0-0.4); Lymphocytes Absolute Auto 2.4 X10*3/uL (1.2-4.9); Lymphocytes Percent Auto 41.3 % (20-40); Mean Corpuscular HGB Conc 33.3 g/dl (31.0-36.0); Mean Corpuscular Volume 90.1 fL (80.0-98.0); Mean Platelet Volume 10.1 fL (9.4-12.4); Monocytes Absolute Auto 0.5 X10*3/uL (0.1-1.2); Monocytes Percent Auto 8.4 % (2-11); Neutrophils Absolute Auto 2.8 x10*3/uL (2.0-8.3); Neutrophils Percent Auto 48.5 % (45-73); Platelet Count 194 X10*3/uL (160-400); Red Blood Count 4.96 X10*6/uL (4.60-5.80); Red Cell Distribution Width 13.5 % (11.0-16.0); White Blood Count 5.7 X10*3/uL (4.8-10.8)
[2021-07-17 10:17] LABS: Estimated Average Glucose 94 mg/dL; Hemoglobin A1c % 4.9 %
[2021-07-17 10:26] LABS: Anion Gap 13 (12-20); Blood Urea Nitrogen 21 mg/dL (9-16); Calcium 9.7 mg/dL (8.4-10.2); Carbon Dioxide 28 mmol/L (22-29); Chloride 102 mmol/L (96-108); Cholesterol 131 mg/dL; Estimated Glomerular Filt Rate > 60; Glucose Random 83 mg/dL (60-115); HDL Cholesterol 44 mg/dL; Iron 79 mcg/dL (45-160); LDL Cholesterol Calculated 73 mg/dl; Percent Iron Saturation 34 % (15-50); Potassium 4.2 mmol/L (3.3-5.1); Sodium 139 mmol/L (135-145); Total Iron Binding Capacity 233 mcg/dL (228-428); Triglycerides 71 mg/dL; Unsaturated Iron Binding 154 ug/dL
[2021-07-17 10:36] LABS: Ferritin 737 ng/mL (20-250); Vitamin D 25-OH Total 45.5 ng/mL (>30)
[2021-07-17 10:44] LABS: Folate 18.3 ng/mL (> or = 4.0); Vitamin B12 652 pg/mL (200-900)
[2021-07-17 11:08] LABS: Insulin 3 uU/mL (2-29)
[2021-07-19 14:46] LABS: Calcium (PTHI) 9.7 mg/dL (8.6-10.3); PTHI 19 pg/mL (16-77)
[2021-07-22 10:17] LABS: Vitamin B1 32 nmol/L (8-30)
[2021-07-22 15:32] LABS: Zinc 82 mcg/dL (60-130)
[2021-07-23 12:31] LABS: Vitamin A 41 mcg/dL (38-98)
== END 2021-07-17 08:20 | disposition home or self-care (01) ==
LOC: HO.LAB 08:19
PROVIDERS: PCP Internal Medicine; Visit Provider Physician Assistant Surgical
DX: E66.01 Morbid (severe) obesity due to excess calories (principal); I10 Essential (primary) hypertension; E53.8 Deficiency of other specified B group vitamins; E55.9 Vitamin D deficiency, unspecified; Z68.34 Body mass index [BMI] 34.0-34.9, adult; Z98.84 Bariatric surgery status; Z79.899 Other long term (current) drug therapy
CPT/HCPCS: 36415; 80048; 80061; 82306; 82607; 82728; 82746; 83036; 83525; 83540; 83970; 84425; 84443; 84590; 84630; 85025; 86140

== ENCOUNTER → 2022-02-25 09:01 | Outpatient (BNVA) | payer OTHER, SELFPAY | PROVIDERS: PCP Internal Medicine; Visit Provider Dietitian, Registered | DX: E66.3 Overweight (principal); Z68.26 Body mass index [BMI] 26.0-26.9, adult | CPT/HCPCS: 97803 ==

== ENCOUNTER → 2022-04-16 08:07 | Outpatient (BNVA) | payer OTHER, SELFPAY | PROVIDERS: PCP Internal Medicine; Visit Provider Dietitian, Registered | DX: E66.3 Overweight (principal); Z68.27 Body mass index [BMI] 27.0-27.9, adult | CPT/HCPCS: 97803 ==

== ENCOUNTER → 2022-05-03 08:04 | Outpatient (BNVA) | payer OTHER, SELFPAY | PROVIDERS: PCP Internal Medicine; Referring Provider Internal Medicine; Visit Provider Physician Assistant Surgical | DX: Z13.89 Encounter for screening for other disorder (principal) ==

== ENCOUNTER → 2022-06-03 08:18 | Outpatient (BNVA) | payer OTHER, SELFPAY | PROVIDERS: PCP Internal Medicine; Referring Provider Internal Medicine; Visit Provider Dietitian, Registered | DX: Z98.84 Bariatric surgery status (principal); Z71.3 Dietary counseling and surveillance | CPT/HCPCS: 97803 ==

== ENCOUNTER → 2022-08-20 15:14 | Outpatient (BNVA) | payer OTHER, SELFPAY | PROVIDERS: PCP Internal Medicine; Visit Provider Dietitian, Registered | DX: E66.9 Obesity, unspecified (principal); Z71.3 Dietary counseling and surveillance; Z98.84 Bariatric surgery status; Z68.29 Body mass index [BMI] 29.0-29.9, adult | CPT/HCPCS: 97803 ==

== ENCOUNTER → 2022-09-23 08:18 | Outpatient (BNVA) | payer OTHER, SELFPAY | PROVIDERS: PCP Internal Medicine; Visit Provider Dietitian, Registered | DX: E66.9 Obesity, unspecified (principal); Z71.3 Dietary counseling and surveillance; Z68.30 Body mass index [BMI] 30.0-30.9, adult | CPT/HCPCS: 97803 ==

== ENCOUNTER → 2022-10-08 07:50 | Outpatient (BNVA) | payer OTHER, SELFPAY | PROVIDERS: PCP Internal Medicine; Visit Provider Physician Assistant ==

== ENCOUNTER 2022-10-15 07:05 | Outpatient (REF) | payer OTHER, SELFPAY ==
[2022-10-15 07:25] LABS: MANUAL DIFF FLAG NO
[2022-10-15 08:59] LABS: Basophils Percent Auto 0.7 % (0-2); Eosinophils Percent Auto 0.7 % (0-4); Hematocrit 45.5 % (42.0-52.0); Imm Gran Abs Auto 0.02 X10*3/uL (0.00-0.03); Imm Gran Pct Auto 0.5 % (0.0-0.4); Lymphocytes Absolute Auto 1.9 X10*3/uL (1.2-4.9); Lymphocytes Percent Auto 44.7 % (20-40); Mean Corpuscular Hemoglobin 31.1 pg (27.0-33.0); Mean Corpuscular Volume 94.4 fL (80.0-98.0); Mean Platelet Volume 10.1 fL (9.4-12.4); Monocytes Absolute Auto 0.4 X10*3/uL (0.1-1.2); Monocytes Percent Auto 9.3 % (2-11); Neutrophils Absolute Auto 1.9 x10*3/uL (2.0-8.3); Neutrophils Percent Auto 44.1 % (45-73); Platelet Count 175 X10*3/uL (160-400); Red Blood Count 4.82 X10*6/uL (4.60-5.80); Red Cell Distribution Width 12.5 % (11.0-16.0); White Blood Count 4.3 X10*3/uL (4.8-10.8)
[2022-10-15 09:22] LABS: Estimated Average Glucose 88 mg/dL; Hemoglobin A1c % 4.7 %
[2022-10-15 11:04] LABS: Folate 15.5 ng/mL (> or = 4.0); Vitamin B12 644 pg/mL (200-900)
[2022-10-15 11:24] LABS: Alanine Aminotransferase 39 U/L (0-40); Albumin Level 4.3 g/dL (3.5-5.0); Alkaline Phosphatase 52 U/L (39-117); Anion Gap 11 (12-20); Aspartate Amino Transferase 33 U/L (5-37); Bilirubin Total 1.5 mg/dL (0.0-1.0); Blood Urea Nitrogen 31 mg/dL (9-16); C Reactive Protein < 0.10 mg/dL (< or = 0.50); Calcium 9.4 mg/dL (8.4-10.2); Carbon Dioxide 30 mmol/L (22-29); Chloride 102 mmol/L (96-108); Cholesterol 142 mg/dL; Estimated Glomerular Filt Rate > 60; Ferritin 561 ng/mL (20-250); Glucose Random 73 mg/dL (60-115); HDL Cholesterol 63 mg/dL; Iron 90 mcg/dL (45-160); LDL Cholesterol Calculated 70 mg/dl; Percent Iron Saturation 40 % (15-50); Potassium 4.4 mmol/L (3.3-5.1); Sodium 139 mmol/L (135-145); TSH reflex Free T4 1.23 uIU/mL (0.32-4.0); Total Iron Binding Capacity 223 mcg/dL (228-428); Total Protein 6.9 g/dL (6.5-8.0); Triglycerides 48 mg/dL; Unsaturated Iron Binding 133 ug/dL; Vitamin D 25-OH Total 33.9 ng/mL (>30)
[2022-10-15 12:08] LABS: Insulin 2 uU/mL (2-29)
[2022-10-17 22:09] LABS: Calcium (PTHI) 9.3 mg/dL (8.6-10.3); PTHI 37 pg/mL (16-77)
[2022-10-18 16:59] LABS: Zinc 70 mcg/dL (60-130)
[2022-10-21 05:23] LABS: Vitamin B1 6 nmol/L (8-30)
[2022-10-21 17:53] LABS: Vitamin A 39 mcg/dL (38-98)
== END 2022-10-15 07:06 | disposition home or self-care (01) ==
LOC: HO.LAB 07:05
PROVIDERS: PCP Internal Medicine; Visit Provider Physician Assistant Surgical
DX: E66.3 Overweight (principal); I10 Essential (primary) hypertension; G47.33 Obstructive sleep apnea (adult) (pediatric); Z83.3 Family history of diabetes mellitus; Z71.3 Dietary counseling and surveillance; Z98.84 Bariatric surgery status; Z68.29 Body mass index [BMI] 29.0-29.9, adult
CPT/HCPCS: 36415; 80053; 80061; 82306; 82607; 82728; 82746; 83036; 83525; 83540; 83970; 84425; 84443; 84590; 84630; 85025; 86140; 97803

== ENCOUNTER 2022-10-15 08:02 | Outpatient (AMB) | payer OTHER, SELFPAY ==
--- NOTE | 2022-10-15 08:12 | A.OFFVIS_ITS ---
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 Moran 01/18/21 Initial weight (08/08) 434# weight (02/2022) 192# Weight (04/16/22) 199# weight In august 2022 208 weight (09/23/22) 220# last weight 10/08 213# current 211# Reason for consult elevated BMI Diet Assmnt Details Currently pt is having 2 shakes (each 2 scoop Premier powder with 8 oz soy milk= 38g protein per shake) 2 ONE protein bars meal 2-3 oz protein with vegetable 6:30pm to 8:30am is naturally fasting 14 hours Exercise: varies - heavy cardio and recently started incorporating weights MVI- gummy from [employer] . Didn't tolerate the celebrate MVI well. Hydration: 130oz+ MFP Journal weight loss from 10/01 - today - resulted in a 9# weight loss 09/23/22 - 1214 calories, 91g carb, 45g fat, 138g protein, 30g sugar ; exercise burned 923 calories 09/24/22 - 1294 calories, 94g carb, 41g fat, 167g protein, 38g sugar ; exercise burned 600 calories 09/25/22 - 1294 calories, 75g carb, 40g fat, 169g protein, 33g sugar ; exercise burned 962 calories 09/26/22 - 1379 calories, 101g carb, 46g fat, 166g protein, 35g sugar ; exercise burned 802 calories 09/27/22 - 1419 calories, 100g carbs, 48g fat, 166g protein, 35g sugar ; exercise burned 1045 calories 09/28/22 - 916 calories, 64g carbs, 22g fat, 125g protein, 26g sugar ; exercise burned 906 calories 09/29/22 - 1428 calories, 114g carb, 44g fat, 169g protein, 52g sugar ; exercise burned 711 calories?? 10/01 1375kcal, 95g carb, 170g protein, 50g fat - exercise 600kcal 10/02 1347kcal, 107g carb, 166g protein, 42g fat - exercise 1040kcal 10/03 1250kcal, 95g carb, 161g protein, 40g fat - exercise 350kcal 10/04 1334 kcal, 104g carb, 167g protein, 42g fat - exercise 1347kcal 10/05 1711kcal 113g carb, 169g protein, 75g fat - exercise 550kcal 10/06 1050kcal 65g carb, 122g protein, 47g fat - exercise 1134kcal 10/07 1368kcal, 101g carb, 169 protein, 47g fat - exercise 900kcal 10/08 1316kcal, 100g carb, 167g protein, 39g fat - exercise 830kcal 10/09 1385kcal 100g carb, 169g protein, 48g fat - exercise 310kcal 10/10 1325kcal 85g carb, 167g protein, 38g fat - exercise 828kcal 10/11 1380kcal 91g carb, 168g protein, 43g fat - exercise ? 10/12 1506kcal 107g carb, 171g protein, 52g fat - exercise 640kcal 10/13 1075kcal 65g carb, 125g protein, 40g fat - exercise 1112kcal We have had many discussions about increasing calories/general nutrition and cutting back on exercise. Patient understands the need to find a healthy balance . Mentioned transitioning to whole foods diet but pt very apprehensive. Is willing to trial any changes but only up to a 5# weight gain Assessment Assessment details Current intake roughly 1400kcal. Is under fueling for level of PA and body comp. Diagnosis Nutrition problem #1 overweight/obesity As related to (etiology) #1 excess energy intake and physical inactivity As evidenced by (sign/symptom) #1 high BMI (improved ) Monitoring/Goals Nutrition problem monitoring total energy intake, level of knowledge/skill, total PRO intake, total CHO intake, weight and oral fluids Outcome progress progressing Learning/Education Readiness to learn excellent Stages of change action Educational materials provided Yes Most Recent Diabetes Results: Cholesterol Pending 10/15/22 HDL Cholesterol Pending 10/15/22 Triglycerides Pending 10/15/22 Creatinine Pending 10/15/22 Blood Urea Nitrogen Pending 10/15/22 Sodium Pending 10/15/22 Potassium Pending 10/15/22 Chloride Pending 10/15/22 Carbon Dioxide Pending 10/15/22 Calcium Pending 10/15/22 AST Pending 10/15/22 ALT Pending 10/15/22 Total Protein Pending 10/15/22 Albumin Pending 10/15/22 PFSH Medical History Adjustment disorder, unspecified COVID-19 vaccine series completed Hypertension Morbid obesity On beta dianna at home Sleep apnea Steatosis, liver Vitamin B12 deficiency Vitamin D deficiency Surgical History No significant past surgical history Family History Mother Hypertension Diabetes Breast cancer Father Hypertension Hyperlipidemia Brother No problems noted. Sister No problems noted. Daughter No problems noted. Social History Are you a primary career consultant to a significant other at home: No Do you presently have visiting nurse or other home services: No Alcohol intake: never Patient Tobacco Use Status: Never used Tobacco service: No Current occupational status: employed Assessment & Plan Assessment & Plan (1) Overweight (BMI 25.0-29.9): Code(s): E66.3 - Overweight Patient Instructions: After assessing body composition changes, patient appears to be losing strict the body fat while preserving muscle mass. Therefore will continue nutrition plan - prioritizing a high-protein diet around 150-170 g per day. Will wait for lab results. continue to come in for weight checks to monitor body comp. he will continue to avoid artifical sweeteners as well. continue weight training exercises. f/u 11/15 8:30am OV Coding Level of Care Code Nutr Indiv Subseq ([id number]) Diagnoses Overweight (BMI 25.0-29.9) E66.3 Time Spent (min) 45
[2022-10-15 08:34] VITALS: BMI 29.4
== END 2022-10-15 09:08 | disposition home or self-care (01) ==
PROVIDERS: PCP Internal Medicine; Visit Provider Dietitian, Registered
DX: E66.3 Overweight (principal)

== ENCOUNTER → 2022-11-01 07:47 | Outpatient (BNVA) | payer OTHER, SELFPAY | PROVIDERS: PCP Internal Medicine; Visit Provider Physician Assistant Surgical ==

== ENCOUNTER 2022-11-25 08:39 | Outpatient (AMB) | payer OTHER, SELFPAY ==
--- NOTE | 2022-11-25 08:29 | A.OFFVIS_ITS ---
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 Moran 01/18/21 Initial weight (08/08) 434# weight (02/2022) 192# Weight (04/16/22) 199# weight In august 2022 208 weight (09/23/22) 220# last weight 10/08 213# current 211# Reason for consult elevated BMI Diet Assmnt Details Shares he had covid recently, daughters birthday, various life things going on throwing him off slightly. Currently pt is having . 2 shakes (each 2 scoop Premier powder wi th 8 oz soy milk= 38g protein per shake) 2 ONE protein bars meal 2-3 oz protein with vegetable 6:30pm to 8:30am is naturally fasting 14 hours Exercise: varies - heavy cardio and recently started incorporating weights 1 hour cardio 5 days per week 2x per week strength training at 45 chari michael and 20 minutes cardio MVI- gummy from [employer] . Didn't tolerate the celebrate MVI well. Hydration: 130oz+ MFP Journal weight loss from 10/01 - 10/13 - resulted in a 9# weight loss 09/23/22 - 1214 calories, 91g carb, 45g f at, 138g protein, 30g sugar ; exercise burned 923 calories 09/24/22 - 1294 calories, 94g carb, 41g f at, 167g protein, 38g sugar ; exercise burned 600 calories 09/25/22 - 1294 calories, 75g carb, 40g f at, 169g protein, 33g sugar ; exercise burned 962 calories 09/26/22 - 1379 calories, 101g carb, 46g fat, 166g protein, 35g sugar ; exercise burned 802 calories 09/27/22 - 1419 calories, 100g carbs, 48g fat, 166g protein, 35g sugar ; exercise burned 1045 calories 09/28/22 - 916 calories, 64g carbs, 22g f at, 125g protein, 26g sugar ; exercise burned 906 calories 09/29/22 - 1428 calories, 114g carb, 44g fat, 169g protein, 52g sugar ; exercise burned 711 calories?? 10/01 1375kcal, 95g carb, 170g protein, 50g fat - exercise 600kcal 10/02 1347kcal, 107g carb, 166g protein, 42g fat - exercise 1040kcal 10/03 1250kcal, 95g carb, 161g protein, 40g fat - exercise 350kcal 10/04 1334 kcal, 104g carb, 167g protein , 42g fat - exercise 1347kcal 10/05 1711kcal 113g carb, 169g protein, 75g fat - exercise 550kcal 10/06 1050kcal 65g carb, 122g protein, 47g fat - exercise 1134kcal 10/07 1368kcal, 101g carb, 169 protein, 47g fat - exercise 900kcal 10/08 1316kcal, 100g carb, 167g protein , 39g fat - exercise 830kcal 10/09 1385kcal 100g carb, 169g protein, 48g fat - exercise 310kcal 10/10 1325kcal 85g carb, 167g protein , 38g fat - exercise 828kcal 10/11 1380kcal 91g carb, 168g protein, 43g fat - exercise ? 10/12 1506kcal 107g carb, 171g protein , 52g fat - exercise 640kcal 10/13 1075kcal 65g carb, 125g protein , 40g fat - exercise 1112kcal We have had many discussions about increasing calories/general nutrition and cutting back on exercise. Patient understands the need to find a healthy balance . Mentioned transitioning to whole foods diet but pt apprehensive. Is willing to trial any changes but only up to a 5# weight gain Assessment Assessment details Current intake roughly 1400kcal. Is under fueling for level of PA and body comp. Diagnosis Nutrition problem #1 overweight/obesity As related to (etiology) #1 excess energy intake and physical inactivity As evidenced by (sign/symptom) #1 high BMI (improved ) Monitoring/Goals Nutrition problem monitoring total energy intake, level of knowledge/skill, total PRO intake, total CHO intake, weight and oral fluids Outcome progress progressing Learning/Education Readiness to learn excellent Stages of change action Educational materials provided Yes Most Recent Diabetes Results: Cholesterol 142 mg/dL 10/15/22 HDL Cholesterol 63 mg/dL 10/15/22 Triglycerides 48 mg/dL 10/15/22 Creatinine 0.80 mg/dL (0.5-1.4) 10/15/22 Blood Urea Nitrogen 31 mg/dL (9-16) H 10/15/22 Sodium 139 mmol/L (135-145) 10/15/22 Potassium 4.4 mmol/L (3.3-5.1) 10/15/22 Chloride 102 mmol/L (96-108) 10/15/22 Carbon Dioxide 30 mmol/L (22-29) H 10/15/22 Calcium 9.4 mg/dL (8.4-10.2) 10/15/22 AST 33 U/L (5-37) 10/15/22 ALT 39 U/L (0-40) 10/15/22 Total Protein 6.9 g/dL (6.5-8.0) 10/15/22 Albumin 4.3 g/dL (3.5-5.0) 10/15/22 [facility] Medical History Adjustment disorder, unspecified COVID-19 vaccine series completed Hypertension Morbid obesity On beta dianna at home Sleep apnea Steatosis, liver Vitamin B12 deficiency Vitamin D deficiency Surgical History No significant past surgical history Family History Mother Hypertension Diabetes Breast cancer Father Hypertension Hyperlipidemia Brother No problems noted. Sister No problems noted. Daughter No problems noted. Social History Are you a primary health care liaison to a significant other at home: No Do you presently have visiting nurse or other home services: No Alcohol intake: never Patient Tobacco Use Status: Never used Tobacco service: No Current occupational status: employed Assessment & Plan Assessment & Plan (1) Overweight (BMI 25.0-29.9): Code(s): E66.3 - Overweight Patient Instructions: Overall still doing well. pt would like to continue to use the bars and shakes. I did recommend decreasing cardio and instead focus on 5 days weight training 45 minutes, 20 minutes cardio, then make 2 days strictly cardio days. We will folllow up again Nov Telehealth Telehealth Location of provider rendering services: practice address Location of patient: address on file (public building but private location ) Patient Identification confirmed using: Name, : Yes Telehealth method: video Patient verbally consented to treatment: Yes Patient verbally consented to billing insurance company: Yes Patient informed of any privacy concerns related to visit: Yes Minutes spent on Phone/Video with Pt.: 20 Coding Level of Care Code Nutr Indiv Subseq ([id number]) Diagnoses Overweight (BMI 25.0-29.9) E66.3 Time Spent (min) 20
== END 2022-11-25 09:04 | disposition home or self-care (01) ==
PROVIDERS: PCP Internal Medicine; Visit Provider Dietitian, Registered
DX: E66.3 Overweight (principal)

== ENCOUNTER → 2022-11-25 08:39 | Outpatient (BNVA) | payer OTHER, SELFPAY | PROVIDERS: PCP Internal Medicine; Visit Provider Dietitian, Registered | DX: E66.3 Overweight (principal); Z98.84 Bariatric surgery status; Z71.3 Dietary counseling and surveillance | CPT/HCPCS: 97803 ==

== ENCOUNTER → 2023-01-13 08:48 | Outpatient (BNVA) | payer OTHER, SELFPAY | PROVIDERS: PCP Internal Medicine; Visit Provider Dietitian, Registered | DX: Z71.3 Dietary counseling and surveillance (principal); E66.01 Morbid (severe) obesity due to excess calories; E53.8 Deficiency of other specified B group vitamins; E55.9 Vitamin D deficiency, unspecified; Z90.3 Acquired absence of stomach [part of] | CPT/HCPCS: 97803 ==

== ENCOUNTER 2023-02-11 08:17 | Outpatient (AMB) | payer OTHER, SELFPAY ==
--- NOTE | 2023-02-11 08:27 | MHC.AMNUTRGE ---
Intake VS Expanded 02/11/23 08:35 02/11/23 08:47 Height 5 ft 11 in 5 ft 11 in Weight 214 lb 214 lb BMI 29.8 29.8 Body Fat % 16.8 Body Fat Mass 36.2 Fat Free Mass 178.6 Visceral Fat Rating 8 Body Water % 62.3 Body Water Mass 133.8 Muscle Mass/Score 169.8 Basal Metabolic Rate/Score 2,370 Intake Visit Reasons: (OV) PO LSG 01/18/21 Bleach Maker Required: No Allergies No Known Allergies Allergy (Verified 01/28/22 08:38) HPI Nutrition Presentation Details LSG with Dr. Moran 01/18/21 Initial weight (08/08) 434# weight (02/2022) 192# Weight (04/16/22) 199# weight In august 2022 208 weight (09/23/22) 220# last weight 11/01 211# current 214# Reason for consult elevated BMI Diet Assmnt Details Typical intake ranges from 1,000-1,400kcal per day. usually 1300kcal per day. last appt we discussed accepting his weight as is. Metabolically, he is very healthy. His body fat is low, muscle mass is high. He is in great cardiovascular health. He has healthy eating habits. Currently pt is having . 2 shakes (each 2 scoop Premier powder with 8 oz soy milk= 38g protein per shake) 2 ONE protein bars meal 2-3 oz protein with vegetable two days per week he fasts, window of eating is 1pm-7pm. 7 hours eating window. really enjoys this. Exercise: varies - heavy cardio and recently started incorporating weights 1 hour cardio 5 days per week 2x per week strength training at 45 minutes and 20 minutes cardio walks 4-5 miles in addition MVI- gummy from [employer] . Didn't tolerate the celebrate MVI well. Hydration: 130oz+ See previous notes for food logging data We have had many discussions about increasing calories/general nutrition and cutting back on exercise. Patient understands the need to find a healthy balance . Mentioned transitioning to whole foods diet but pt apprehensive. Is willing to trial any changes but only up to a 5# weight gain Assessment Assessment details Current intake roughly 1400kcal. Is under fueling for level of PA and body comp. Nutrition Needs Calculation Weight 214 lb TMK-Tmfzhdr-Pz.Jeor Equation Height 5 ft 11 in Weight 214 lb Resting Metabolic Rate 1890.28 Calculated Activity Level Heavy Activity (2200 calories ) Calories Needed to Maintain Weight 3213.48 Diagnosis Nutrition problem #1 overweight/obesity As related to (etiology) #1 excess energy intake and physical inactivity As evidenced by (sign/symptom) #1 high BMI (improved ) Monitoring/Goals Nutrition problem monitoring total energy intake, level of knowledge/skill, total PRO intake, total CHO intake, weight and oral fluids Outcome progress progressing Learning/Education Readiness to learn excellent Stages of change action Educational materials provided Yes Most Recent Diabetes Results: Cholesterol 142 mg/dL 10/15/22 HDL Cholesterol 63 mg/dL 10/15/22 Triglycerides 48 mg/dL 10/15/22 Creatinine 0.80 mg/dL (0.5-1.4) 10/15/22 Blood Urea Nitrogen 31 mg/dL (9-16) H 10/15/22 Sodium 139 mmol/L (135-145) 10/15/22 Potassium 4.4 mmol/L (3.3-5.1) 10/15/22 Chloride 102 mmol/L (96-108) 10/15/22 Carbon Dioxide 30 mmol/L (22-29) H 10/15/22 Calcium 9.4 mg/dL (8.4-10.2) 10/15/22 AST 33 U/L (5-37) 10/15/22 ALT 39 U/L (0-40) 10/15/22 Total Protein 6.9 g/dL (6.5-8.0) 10/15/22 Albumin 4.3 g/dL (3.5-5.0) 10/15/22 [facility], [facility] Medical History Adjustment disorder, unspecified COVID-19 vaccine series completed Hypertension Morbid obesity On beta dianna at home Sleep apnea Steatosis, liver Vitamin B12 deficiency Vitamin D deficiency Surgical History No significant past surgical history Family History Mother Hypertension Diabetes Breast cancer Father Hypertension Hyperlipidemia Brother No problems noted. Sister No problems noted. Daughter No problems noted. Social History (Reviewed 11/23/21 @ 09:00 by KEY Prado Are you a primary home care assistant to a significant other at home: No Do you presently have visiting nurse or other home services: No Alcohol intake: never Patient Tobacco Use Status: Never used Tobacco service: No Current occupational status: employed Assessment & Plan Assessment & Plan (1) Overweight (BMI 25.0-29.9): Code(s): E66.3 - Overweight Plan nutrition follow up 03/25 8:30 OV Patient Instructions: if fasting 2 days per week, increase caloric intake on the weekends. replace 1 bar with a food based meal. continue to work on weight acceptance . Coding Level of Care Code Nutr Indiv Subseq (79480) Diagnoses Overweight (BMI 25.0-29.9) E66.3 Time Spent (min) 30
[2023-02-11 08:35] VITALS: BMI 29.8
[2023-02-11 14:00] VITALS: BMI 29.8
== END 2023-02-11 09:08 | disposition home or self-care (01) ==
PROVIDERS: PCP Internal Medicine; Visit Provider Dietitian, Registered
DX: E66.3 Overweight (principal)

== ENCOUNTER → 2023-02-11 08:17 | Outpatient (BNVA) | payer OTHER, SELFPAY | PROVIDERS: PCP Internal Medicine; Visit Provider Dietitian, Registered | DX: E66.3 Overweight (principal); Z68.29 Body mass index [BMI] 29.0-29.9, adult; Z98.84 Bariatric surgery status; Z71.3 Dietary counseling and surveillance | CPT/HCPCS: 97803 ==

== ENCOUNTER 2023-06-06 08:37 | Outpatient (AMB) | payer OTHER, SELFPAY ==
--- NOTE | 2023-06-06 08:31 | A.OFFVIS_ITS ---
Intake VS Expanded 06/06/23 08:36 Height 5 ft 11 in Weight 222 lb BMI 31.0 Intake Visit Reasons: (TV) PO LSG 01/18/21 Allergies No Known Allergies Allergy (Verified 01/28/22 08:38) HPI Nutrition Presentation Details LSG with Dr. Moran 01/18/21 Initial weight (08/08) 434# weight (02/2022) 192# Weight (04/16/22) 199# weight In august 2022 208 weight (09/23/22) 220# weight 11/01 211# current 222# Reason for consult elevated BMI Diet Assmnt Details Typical intake ranges from 1,000-1,400kcal per day. usually 1300kcal per day. last appt we discussed accepting his weight as is. Metabolically, he is very healthy. His body fat is low, muscle mass is high. He is in great cardiovascular health. He has healthy eating habits. Despite this, he continues to gain and he is starting to feel very uncomfortable. In the past, we had discussed trusting the process but he feels he isn't comfortable with his weight going any higher. Currently pt is having . 8am/10:30/1pm/3:30 2 shakes (each 2 scoop Premier powder wi th 8 oz soy milk= 38g protein per shake) 2 ONE protein bars meal 2-3 oz protein with vegetable two days per week he fasts, window of eating is 1pm-7pm. 7 hours eating window. really enjoys this. Exercise: varies - heavy cardio and recently started incorporating weights 45min cardio 3 days per week 2x per week strength training at 45 chari michael and 20 minutes cardio walks 4-5 miles in addition MVI- gummy from [employer] . Didn't tolerate the celebrate MVI well. Hydration: 130oz+ See previous notes for food logging data We have had many discussions about increasing calories/general nutrition and cutting back on exercise. Patient understands the need to find a healthy balance . Mentioned transitioning to whole foods diet but pt apprehensive. Is willing to trial any changes but only up to a 5# weight gain Diagnosis Nutrition problem #1 overweight/obesity As related to (etiology) #1 excess energy intake and physical inactivity As evidenced by (sign/symptom) #1 high BMI (improved ) Monitoring/Goals Nutrition problem monitoring total energy intake, level of knowledge/skill, total PRO intake, total CHO intake, weight and oral fluids Outcome progress progressing Learning/Education Readiness to learn excellent Stages of change action Educational materials provided Yes Most Recent Diabetes Results: Cholesterol 142 mg/dL 10/15/22 HDL Cholesterol 63 mg/dL 10/15/22 Triglycerides 48 mg/dL 10/15/22 Creatinine 0.80 mg/dL (0.5-1.4) 10/15/22 Blood Urea Nitrogen 31 mg/dL (9-16) H 10/15/22 Sodium 139 mmol/L (135-145) 10/15/22 Potassium 4.4 mmol/L (3.3-5.1) 10/15/22 Chloride 102 mmol/L (96-108) 10/15/22 Carbon Dioxide 30 mmol/L (22-29) H 10/15/22 Calcium 9.4 mg/dL (8.4-10.2) 10/15/22 AST 33 U/L (5-37) 10/15/22 ALT 39 U/L (0-40) 10/15/22 Total Protein 6.9 g/dL (6.5-8.0) 10/15/22 Albumin 4.3 g/dL (3.5-5.0) 10/15/22 [facility] Medical History Adjustment disorder, unspecified COVID-19 vaccine series completed Hypertension Morbid obesity On beta dianna at home Sleep apnea Steatosis, liver Vitamin B12 deficiency Vitamin D deficiency Surgical History No significant past surgical history Family History Mother Hypertension Diabetes Breast cancer Father Hypertension Hyperlipidemia Brother No problems noted. Sister No problems noted. Daughter No problems noted. Social History Are you a primary field care coordinator to a significant other at home: No Do you presently have visiting nurse or other home services: No Alcohol intake: never Patient Tobacco Use Status: Never used Tobacco service: No Current occupational status: employed Assessment & Plan Assessment & Plan (1) BMI 30.0-30.9,adult: Code(s): Z68.30 - Body mass index [BMI] 30.0-30.9, adult Plan recommended discussing AOMs with his PCP. continue with his current exercise routine. he would like to discontinue food a few days per week, and go back to having just bars shakes. Supported what pt feels comfortable with, encouraged getting enough protein and listening to body Telehealth Telehealth Location of provider rendering services: practice address Location of patient: address on file Patient Identification confirmed using: Name, : Yes Telehealth method: voice only Patient verbally consented to treatment: Yes Patient verbally consented to billing insurance company: Yes Patient informed of any privacy concerns related to visit: Yes Minutes spent on Phone/Video with Pt.: 30 Coding Level of Care Code Nutr Indiv Subseq ([id number]) Diagnoses BMI 30.0-30.9,adult Z68.30 Time Spent (min) 30
[2023-06-06 08:36] VITALS: BMI 31.0
== END 2023-06-06 09:58 | disposition home or self-care (01) ==
LOC: HO.HBS 08:37
PROVIDERS: PCP Internal Medicine; Visit Provider Dietitian, Registered
DX: Z68.30 Body mass index [BMI] 30.0-30.9, adult (principal)

== ENCOUNTER → 2023-06-06 08:37 | Outpatient (BNVA) | payer OTHER, SELFPAY | PROVIDERS: PCP Internal Medicine; Visit Provider Dietitian, Registered | DX: E66.9 Obesity, unspecified (principal); Z68.31 Body mass index [BMI] 31.0-31.9, adult; Z98.84 Bariatric surgery status; Z71.3 Dietary counseling and surveillance | CPT/HCPCS: 97803 ==

== ENCOUNTER 2023-07-03 08:19 | Outpatient (AMB) | payer OTHER, SELFPAY ==
--- NOTE | 2023-07-03 08:40 | A.OFFPC_ITS ---
Vital Signs 07/03/23 08:51 Height 5 ft 11 in Weight 238 lb 6 oz BMI 33.2 BP 118/68 Blood Pressure Location Rt brachial Position Sitting Respiration 14 Pulse 67 Pulse Source Pulse Oximeter Temp 98.6 F Temp Source Oral Pulse Oximetry (%) 98 Oxygen Delivery Method Room Air Intake Visit Reasons: Weight Gain/Annual Exam Intake Note: New patient visit Pharmaceutical Assistant Required: No Allergies No Known Allergies Allergy (Verified 07/03/23 08:41) Medication List - Last Reconciled 07/03/23 by Marnie Alonso MD clotrimazole-betameth dip-zinc 1-0.05-20 % apply CLOTRIMAZOLE/BETAMETHASONE CREAM twice daily: use ZINC OXIDE PASTE as needed/as directed topical ondansetron 4 mg PO Q8H PRN tirzepatide (Mounjaro) 5 mg (0.5 mL) subcut QWEEK 12 weeks Tobacco use date assessed: 07/03/23 Dental Screening Dental Screen Date: 07/03/23 Did you have a dental visit in the last 12 months?: Yes Did you have a dental problem in the last 6 months where you did not have access to dental care?: No Was dental information given to patient?: Patient has dentist HPI HPI Comments History of Present Illness Details The patient is a 43 year old male with a past medical history of obesity, hypertension, kidney stones and headaches presenting for annual exam History of lap sleeve gast[place] at [facility]. Unfortunately with the reintroduction of food has gained 20-30 pounds despite calorie restriction. Interested in GLP though concerned about potential worsening of baseline constipation Recent bout of kidney stones. Passed without seeking medical care. [facility] Medical History Adjustment disorder, unspecified COVID-19 vaccine series completed Hypertension Morbid obesity On beta dianna at home Sleep apnea Steatosis, liver Vitamin B12 deficiency Vitamin D deficiency Surgical History No significant past surgical history Family History (Updated 07/03/23 @ 08:47 by Renee Anguiano CMA) Mother Hypertension Diabetes Breast cancer Father Hypertension Hyperlipidemia Alcoholism Brother No problems noted. Sister No problems noted. Daughter No problems noted. Social History Housing: House Are you a primary career and guidance counselor to a significant other at home: No Do you presently have visiting nurse or other home services: No Alcohol intake: never Patient Tobacco Use Status: Never used Tobacco e-Cigarette/Vaping Use: Never Used service: No Current occupational status: employed Current occupation: [employer] Current occupational exposures/hazards: Yes (exposure to chemicals) Cognitive needs: No Hearing needs: No Vision needs: No Questionnaire PHQ-9 Over the last 2 weeks, how often have you been bothered by any of the following problems? 1. Little interest or pleasure in doing things: not at all 2. Feeling down, depressed, or hopeless: not at all 3. Trouble falling or staying asleep, or sleeping too much: not at all 4. Feeling tired or having little energy: not at all 5. Poor appetite or overeating: not at all 6. Feeling bad about yourself - or that you are a failure or have let yourself or your family down: not at all 7. Trouble concentrating on things, such as reading the newspaper or watching television: not at all 8. Moving or speaking so slowly that other people could have noticed. Or the opposite - being so fidgety or restless that you have been moving around a lot more than usual: not at all 9. Thoughts that you would be better off or of hurting yourself in some way: not at all Total score: 0 Depression Screening Interpretation: Negative (neg) Depression Screening Done: Yes 34867 - PHQ-9 Billing: Yes Source: Developed by Drs. Matthieu Poon, Shalonda Blandon, Hector Curry and colleagues, with an educational summer from [employer] Thrive Questionnaire Date Thrive assessed: 07/03/23 I am a: Patient What is your living situation today?: I have a steady place to live Within the past 12 months, did the food you bought not last and you didn't have the money to get more?: Never true Within the past 12 months, did you worry whether your food would run out before you got money to buy more?: Never true Do you have trouble paying for medicines?: No Do you have trouble getting transportation to medical appointments?: No Do you have trouble paying your heating and electricity bill?: No Do you have trouble taking care of your child, family member or friend?: No Do you have trouble with day-to-day activities such as bathing, preparing meals, shopping, managing finances, etc.?: No Are you currently unemployed and looking for a job?: No Are you interested in more education?: No Please select the resources that you would like help with: None Currently or been in a relationship where the following occur: no concerns reported THRIVE Score: 0 AUDIT C Alcohol Use Questionnaire (AUDIT-C) 1. How often do you have a drink containing alcohol?: Monthly or less 3. How often do you have six or more drinks on one occasion?: Never Total Score: 1 NICOLE-7 AMB Questionnaire NICOLE-7 Date NICOLE - 7 assessed: 07/03/23 Feeling nervous, anxious, or on edge: 0 = Not at all Not being able to stop or control worryin = Not at all Worrying too much about different things: 0 = Not at all Trouble relaxin = Not at all Being so restless that it is hard to sit still: 0 = Not at all Becoming easily annoyed or irritable: 0 = Not at all Feeling afraid as if something awful might happen: 0 = Not at all Total NICOLE-7 score (0-4 normal; 5-9 mild; 10-14 moderate; 15-21 severe): 0 Source: Developed by Drs. Matthieu Poon, Shalonda Blandon, Hector Curry and colleagues, with an educational summer from [employer] NICOLE-7 Assessment Billing NICOLE-7 Assessment Tool: NICOLE-7 Assessment 78444 Review of Systems Const Details: ROS CONSTITUTIONAL: Denies weight loss, fever and chills. HEENT: Denies changes in vision and hearing. RESPIRATORY: Denies SOB and cough. CV: Denies palpitations and CP GI: Denies abdominal pain, nausea, vomiting and diarrhea. : Denies dysuria and urinary frequency. MSK: Denies new myalgia and joint pain. SKIN: Denies rash and pruritus. NEUROLOGICAL: Denies headache PSYCHIATRIC: Denies recent changes in mood. Physical exam (Primary Care) Vital Signs: Last Vital Signs Temp 98.6 F 07/03/23 08:51 Pulse 67 07/03/23 08:51 Resp 14 07/03/23 08:51 BP 118/68 07/03/23 08:51 Pulse Ox 98 07/03/23 08:51 Oxygen Delivery Method Room Air 07/03/23 08:51 PHYSICAL EXAM: GENERAL: Alert and oriented x 3. NAD EYES: EOMI. Anicteric. HENT: Moist mucous membranes. No scleral icterus. No cervical lymphadenopathy. LUNGS: Clear to auscultation bilaterally. CARDIOVASCULAR: Regular rate and rhythm. No murmur. No JVD. ABDOMEN: Soft, non-tender +bs EXTREMITIES: No edema. Non-tender. SKIN: No rashes or lesions. Warm. NEUROLOGIC: No focal neurological deficits. CN II-XII grossly intact PSYCHIATRIC: Cooperative. Appropriate mood and affect BMI result Body Mass Index 33.2 Tobacco/Smoking Status: Tobacco use Status Tobacco use date assessed 07/03/23 07/03/23 08:45 Patient Tobacco Use Status Never used Tobacco 07/03/23 08:45 e-Cigarette/Vaping Use Never Used 07/03/23 08:45 PHQ-9: PHQ-9 Score PHQ-9: Total score 0 07/03/23 08:51 Depression Screening Interpretation: Negative (neg) Thrive Assessment: Date of Thrive Assessment Date Thrive assessed 07/03/23 07/03/23 08:48 Currently or been in a relationship where the following occur: no concerns reported Assessment and Plan Assessment & Plan (1) Physical exam: Code(s): Z00.00 - Encounter for general adult medical examination without abnormal findings Plan: The patient was evaluated today for annual preventive exam He was counseled about healthy lifestyle habits, including: Smoking cessation Limiting alcohol intake Receiving age-appropriate immunizations at recommended intervals Recommended screening in men includes: Human immunodeficiency virus infection in all men Hypertension in all men Diabetes mellitus in men 40 to 70 years of age who are overweight or obese Dyslipidemia in men 40 to 75 years of age B Prostate cancer in some men 55 to 69 years of age, based on shared decision making Colorectal cancer in average-risk men 50 to 75 years of age Lung cancer in men 55 to 80 years of age who have at least a [id number]-onze smoking history and currently smoke or have quit within the past 15 years (2) Constipation: Comment: Start daily miralax. incorporate senna, docusate as needed Code(s): K59.00 - Constipation, unspecified Qualifiers: Constipation type: other constipation type Qualified Code(s): K59.09 - Other constipation (3) S/P laparoscopic sleeve gastrectomy: Code(s): Z98.84 - Bariatric surgery status (4) Hypertension: Comment: Resolved following weight loss Code(s): I10 - Essential (primary) hypertension Qualifiers: Hypertension type: primary hypertension Qualified Code(s): I10 - E ssential (primary) hypertension Orders: Orders Comprehensive Met. Panel Today I10 - Essential (primary) hypertension, K59.00 - Constipation, unspecified, Z13.0 - Encounter for screening for diseases of the blood and blood-forming organs and certain disorders involving the immune mechanism, Z13.220 - Encounter for screening for lipoid disorders, Z98.84 - Bariatric surgery status Lipid Panel Today I10 - Essential (primary) hypertension, K59.00 - Constipation, unspecified, Z13.0 - Encounter for screening for diseases of the blood and blood-forming organs and certain disorders involving the immune mechanism, Z13.220 - Encounter for screening for lipoid disorders, Z98.84 - Bariatric surgery status Vitamin B12 and Folate Today I10 - Essential (primary) hypertension, K59.00 - Constipation, unspecified, Z13.0 - Encounter for screening for diseases of the blood and blood-forming organs and certain disorders involving the immune mechanism, Z13.220 - Encounter for screening for lipoid disorders, Z98.84 - Bariatric surgery status Complete Blood Count Auto Diff Today I10 - Essential (primary) hypertension, K59.00 - Constipation, unspecified, Z13.0 - Encounter for screening for diseases of the blood and blood-forming organs and certain disorders involving the immune mechanism, Z13.220 - Encounter for screening for lipoid disorders, Z98.84 - Bariatric surgery status TSH reflex Free T4 Today I10 - Essential (primary) hypertension, K59.00 - Constipation, unspecified, Z13.0 - Encounter for screening for diseases of the blood and blood-forming organs and certain disorders involving the immune mechanism, Z13.220 - Encounter for screening for lipoid disorders, Z98.84 - Bariatric surgery status Medications: New tirzepatide (Mounjaro) 5 mg (0.5 mL) subcut QWEEK 12 weeks 6 mL 3RF ondansetron 4 mg PO Q8H PRN 60 tabs 3RF nausea and vomiting clotrimazole-betameth dip-zinc 1-0.05-20 % apply CLOTRIMAZOLE/BETAMETHASONE CREAM twice daily: use ZINC OXIDE PASTE as needed/as directed topical 135 grams 3RF Coding Level of Care Code Est Pt Prev Care 40-64y(66318) Diagnoses Physical exam Z00.00 Other constipation K59.09 Constipation type: other constipation type S/P laparoscopic sleeve gastrectomy Z98.84 Primary hypertension I10 Hypertension type: primary hypertension Additional Codes NICOLE-7 Assessment Billing - NICOLE-7 Assessment Tool: NICOLE-7 Assessment 33343 ([id number])
[2023-07-03 08:51] VITALS: BP 118/68; PULSE 67; RESP 14; TEMP 37; O2SAT 98; BMI 33.2
== END 2023-07-03 09:22 | disposition home or self-care (01) ==
PROVIDERS: PCP Internal Medicine; Visit Provider Internal Medicine
DX: Z00.00 Encounter for general adult medical examination without abnormal findings (principal); K59.09 Other constipation; Z98.84 Bariatric surgery status; I10 Essential (primary) hypertension
CPT/HCPCS: 99396

== ENCOUNTER 2023-07-03 09:20 | Outpatient (REF) | payer OTHER, SELFPAY ==
[2023-07-03 11:26] LABS: MANUAL DIFF FLAG NO
[2023-07-03 11:42] LABS: Eosinophils Percent Auto 0.7 % (0-4); Hematocrit 45.4 % (42.0-52.0); Hemoglobin 15.3 g/dl (14.0-18.0); Imm Gran Abs Auto 0.04 X10*3/uL (0.00-0.03); Lymphocytes Absolute Auto 1.7 X10*3/uL (1.2-4.9); Mean Corpuscular HGB Conc 33.7 g/dl (31.0-36.0); Mean Corpuscular Hemoglobin 31.2 pg (27.0-33.0); Mean Corpuscular Volume 92.7 fL (80.0-98.0); Mean Platelet Volume 9.9 fL (9.4-12.4); Monocytes Absolute Auto 0.4 X10*3/uL (0.1-1.2); Neutrophils Percent Auto 47.3 % (45-73); Platelet Count 165 X10*3/uL (160-400); Red Cell Distribution Width 12.6 % (11.0-16.0); White Blood Count 4.2 X10*3/uL (4.8-10.8)
[2023-07-03 12:47] LABS: Anion Gap 8 (12-20); Blood Urea Nitrogen 28 mg/dL (9-16); Carbon Dioxide 35 mmol/L (22-29); Chloride 102 mmol/L (96-108); Sodium 141 mmol/L (135-145)
[2023-07-03 12:48] LABS: Alanine Aminotransferase 24 U/L (0-40); Albumin Level 4.4 g/dL (3.5-5.0); Alkaline Phosphatase 57 U/L (39-117); Aspartate Amino Transferase 21 U/L (5-37); Bilirubin Total 1.2 mg/dL (0.0-1.0); Calcium 9.7 mg/dL (8.4-10.2); Cholesterol 172 mg/dL (<200); Estimated Glomerular Filt Rate > 60; Glucose Random 88 mg/dL (60-115); HDL Cholesterol 79 mg/dL (>40); LDL Cholesterol Calculated 80 mg/dL (<100); Total Protein 7.2 g/dL (6.5-8.0); Triglycerides 68 mg/dL (<150)
[2023-07-03 13:04] LABS: TSH reflex Free T4 1.07 uIU/mL (0.32-4.0)
[2023-07-03 13:22] LABS: Folate 6.2 ng/mL (> or = 4.0)
[2023-07-03 21:06] LABS: Vitamin B12 434 pg/mL (200-900)
== END 2023-07-03 09:21 | disposition home or self-care (01) ==
LOC: HO.WFDLDS 09:20
PROVIDERS: Visit Provider Internal Medicine
DX: Z13.0 Encounter for screening for diseases of the blood and blood-forming organs and certain disorders involving the immune mechanism (principal); Z13.220 Encounter for screening for lipoid disorders; K59.00 Constipation, unspecified; I10 Essential (primary) hypertension; Z98.84 Bariatric surgery status
CPT/HCPCS: 36415; 80053; 80061; 82607; 82746; 84443; 85025

== ENCOUNTER 2023-08-13 14:18 | Outpatient (AMB) | payer OTHER, SELFPAY ==
--- NOTE | 2023-08-13 14:21 | MHC.OFFVISWM ---
VS Expanded 08/13/23 14:27 BP 130/60 Blood Pressure Location Rt brachial Blood Pressure Position Sitting Pulse 70 Pulse Source Pulse Oximeter Temp 96.6 F L Temperature Source Temporal Artery Scan Pulse Oximetry 96 Oxygen Delivery Method Room Air Height 5 ft 11 in Weight 240 lb 9.6 oz BMI 33.6 Body Fat % 26.0 Body Fat Mass 62.6 Fat Free Mass 178.0 Visceral Fat Rating 13.0 Body Water % 55.2 Body Water Mass 132.8 Muscle Mass/Score 169.0 Basal Metabolic Rate/Score 2,404 Intake Visit Reasons: (OV) POST OP 01/18/21 Allergies No Known Allergies Allergy (Verified 08/13/23 14:34) Medication List - Last Reconciled 08/13/23 by CHELE Pruett No Known Home Meds HPI Comments Details: This?is a?43?yo male who is s/p LSG 01/18/2021. Weight at last visit on 06/06/2023 was 222 pounds with a BMI of 31, weight today is 240.6 pounds, representing a 18.6 pound weight gain with a BMI today of 33.6.? No complaints of nausea, emesis, abdominal pain or reflux, or constipation. Present meal plan includes: coffee with half and half, splenda 8am and 1pm 2 shakes (each 2 scoop Premier powder with 8 oz soy milk= 38g protein per shake) 2 Quest or ONE protein bars- 10:30am and 3pm meal 4oz protein with vegetable Exercise: varies - heavy cardio and recently started incorporating weights 45min cardio 3 days per week 2x per week strength training at 45 minutes and 20 minutes cardio walks 1 mile at lunch daily [facility] Medical History (Updated 07/03/23 @ 09:23 by Marnie Alonso MD) Steatosis, liver COVID-19 vaccine series completed On beta dianna at home Adjustment disorder, unspecified Vitamin D deficiency Vitamin B12 deficiency Sleep apnea Hypertension Morbid obesity Surgical History No significant past surgical history Family History (Updated 07/03/23 @ 08:47 by Renee Anguiano CMA) Mother Hypertension Diabetes Breast cancer Father Hypertension Hyperlipidemia Alcoholism Brother No problems noted. Sister No problems noted. Daughter No problems noted. Social History (Reviewed 11/23/21 @ 09:00 by KEY Prado Housing: House Are you a primary geriatric care manager to a significant other at home: No Do you presently have visiting nurse or other home services: No Alcohol intake: never Patient Tobacco Use Status: Never used Tobacco e-Cigarette/Vaping Use: Never Used service: No Current occupational status: employed Current occupation: [employer] Current occupational exposures/hazards: Yes (exposure to chemicals) Cognitive needs: No Hearing needs: No Vision needs: No Physical Exam Vital Signs: Last Vital Signs Temp 96.6 F L 08/13/23 14:27 Pulse 70 08/13/23 14:27 BP 130/60 08/13/23 14:27 Pulse Ox 96 08/13/23 14:27 Oxygen Delivery Method Room Air 08/13/23 14:27 BMI result Body Mass Index 33.6 Assessment & Plan Assessment & Plan (1) Obesity: Code(s): E66.9 - Obesity, unspecified Category: Medical (2) S/P laparoscopic sleeve gastrectomy: Code(s): Z98.84 - Bariatric surgery status Category: Medical Plan Pt feels his attempt at increasing strength training and protein intake has resulted in too much weight gain. His body fat % has increased and he wants to get back to a cutting plan. New meal plan: coffee with half and half, splenda 8am and 1pm 2 shakes (each 1 scoop Premier powder with 8 oz unsweetened almond milk = 15g protein per shake) 2 Quest or ONE protein bars- 10:30am and 3pm meal 4oz protein with vegetable If he feels hungry- have half protein bar. We discussed that this plan may be a bit of trial and error. He will monitor how he feels with this new meal plan and track weights weekly. Decrease exercise goal to 500-600 calories burned per day with one day of rest per week, besides perhaps walking. Gave pt my phone # and encouraged him to reach out between appts with any questions, also for weekly weight measurements. RTC 6 weeks. Patient is obese and is not considered stable at this time. I spent a total of 30 minutes reviewing/updating records, examining the patient and counseling the patient on weight management as detailed above.
[2023-08-13 14:27] VITALS: BP 130/60; PULSE 70; TEMP 35.9; O2SAT 96; BMI 33.6
== END 2023-08-13 15:21 | disposition home or self-care (01) ==
PROVIDERS: PCP Internal Medicine; Visit Provider Physician Assistant Surgical
DX: E66.9 Obesity, unspecified (principal); Z98.84 Bariatric surgery status
CPT/HCPCS: 99214

== ENCOUNTER → 2023-08-13 14:18 | Outpatient (BNVA) | payer OTHER, SELFPAY | PROVIDERS: PCP Internal Medicine; Visit Provider Physician Assistant Surgical ==

== ENCOUNTER 2024-09-28 08:16 | Outpatient (AMB) | payer OTHER, SELFPAY ==
--- NOTE | 2024-09-28 08:20 | A.OFFPC_ITS ---
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 Required: No Allergies No Known Allergies Allergy (Verified 09/28/24 08:23) Tobacco use date assessed: 09/28/24 Dental Screening Dental Screen Date: 09/28/24 Did you have a dental visit in the last 12 months?: Yes Did you have a dental problem in the last 6 months where you did not have access to dental care?: No Was dental information given to patient?: Patient has dentist HPI HPI Comments History of Present Illness Details The patient is a 43 year old male with a past medical history of obesity, hypertension, kidney stones and headaches presenting for annual exam [place] [facility] [place]Follows with weight management. Recently resumed his prior work out regimen and shakes and bars Intermittent jock rash. Clears with oral antifungal course Urologic: history of nephrolithiasis. No interval episodes Father was diagnosed with prostate cancer and has received treatment Colonoscopy due Tdap 2019 ROS CONSTITUTIONAL: Denies weight loss, fever and chills. HEENT: Denies changes in vision and hearing. RESPIRATORY: Denies SOB and cough. CV: Denies palpitations and CP GI: Denies abdominal pain, nausea, vomiting and diarrhea. : Denies dysuria and urinary frequency. MSK: Denies new myalgia and joint pain. SKIN: Denies rash and pruritus. NEUROLOGICAL: Denies headache PSYCHIATRIC: Denies recent changes in mood. PHYSICAL EXAM: GENERAL: Alert and oriented x 3. NAD EYES: EOMI. Anicteric. HENT: Moist mucous membranes. No scleral icterus. No cervical lymphadenopathy. LUNGS: Clear to auscultation bilaterally. CARDIOVASCULAR: Regular rate and rhythm. No murmur. No JVD. ABDOMEN: Soft, non-tender +bs EXTREMITIES: No edema. Non-tender. SKIN: No rashes or lesions. Warm. NEUROLOGIC: No focal neurological deficits. CN II-XII grossly intact PSYCHIATRIC: Cooperative. Appropriate mood and affect [facility] Medical History Steatosis, liver COVID-19 vaccine series completed On beta dianna at home Adjustment disorder, unspecified Vitamin D deficiency Vitamin B12 deficiency Sleep apnea Hypertension Morbid obesity Surgical History No significant past surgical history Family History Mother Hypertension Diabetes Breast cancer Father Hypertension Hyperlipidemia Alcoholism Prostate cancer Brother No problems noted. Sister No problems noted. Daughter No problems noted. Social History Housing: House Are you a primary home health care social worker to a significant other at home: No Do you presently have visiting nurse or other home services: No Alcohol intake: never Patient Tobacco Use Status: Never used Tobacco e-Cigarette/Vaping Use: Never Used service: No Current occupational status: employed Current occupation: [employer] Current occupational exposures/hazards: Yes (exposure to chemicals) Cognitive needs: No Hearing needs: No Vision needs: No Questionnaire PHQ-9 Over the last 2 weeks, how often have you been bothered by any of the following problems? 1. Little interest or pleasure in doing things: not at all 2. Feeling down, depressed, or hopeless: not at all 3. Trouble falling or staying asleep, or sleeping too much: not at all 4. Feeling tired or having little energy: not at all 5. Poor appetite or overeating: not at all 6. Feeling bad about yourself - or that you are a failure or have let yourself or your family down: not at all 7. Trouble concentrating on things, such as reading the newspaper or watching television: not at all 8. Moving or speaking so slowly that other people could have noticed. Or the opposite - being so fidgety or restless that you have been moving around a lot more than usual: not at all 9. Thoughts that you would be better off or of hurting yourself in some way: not at all Total score: 0 Depression Screening Interpretation: Negative Depression Screening Done: Yes 54874 - PHQ-9 Billing: Yes Source: Developed by Drs. Matthieu Poon, ShalondaHector Lr and colleagues, with an educational summer from [employer]. Thrive Questionnaire Date Thrive assessed: 09/28/24 I am a: Patient What is your living situation today?: I have a steady place to live Within the past 12 months, did the food you bought not last and you didn't have the money to get more?: Never true Within the past 12 months, did you worry whether your food would run out before you got money to buy more?: Never true Do you have trouble paying for medicines?: No Do you have trouble getting transportation to medical appointments?: No Do you have trouble paying your heating and electricity bill?: No Do you have trouble taking care of your child, family member or friend?: No Do you have trouble with day-to-day activities such as bathing, preparing meals, shopping, managing finances, etc.?: No Are you currently unemployed and looking for a job?: No Are you interested in more education?: No Please select the resources that you would like help with: None Currently or been in a relationship where the following occur: No concerns reported THRIVE Score: 0 AUDIT C Alcohol Use Questionnaire (AUDIT-C) 1. How often do you have a drink containing alcohol?: Monthly or less 2. How many drinks containing alcohol do you have on a typical day when you are drinking?: 1 or 2 3. How often do you have six or more drinks on one occasion?: Never Total Score: 1 Score Reviewed/Action Taken: Yes NICOLE-7 AMB Questionnaire NICOLE-7 Date NICOLE - 7 assessed: 09/28/24 Feeling nervous, anxious, or on edge: 0 = Not at all Not being able to stop or control worryin = Not at all Worrying too much about different things: 0 = Not at all Trouble relaxin = Not at all Being so restless that it is hard to sit still: 0 = Not at all Becoming easily annoyed or irritable: 0 = Not at all Feeling afraid as if something awful might happen: 0 = Not at all Total NICOLE-7 score (0-4 normal; 5-9 mild; 10-14 moderate; 15-21 severe): 0 Source: Developed by Drs. Matthieu Poon, Hector Adams and colleagues, with an educational summer from [employer]. NICOLE-7 Assessment Billing NICOLE-7 Assessment Tool: NICOLE-7 Assessment 84107 Physical exam (Primary Care) Vital Signs: Last Vital Signs Temp 97.2 F 09/28/24 08:25 Pulse 60 09/28/24 08:25 Resp 16 09/28/24 08:25 BP 144/77 H 09/28/24 08:25 Pulse Ox 100 09/28/24 08:25 Oxygen Delivery Method Room Air 09/28/24 08:25 BMI result Body Mass Index 41.5 Tobacco/Smoking Status: Tobacco use Status Tobacco use date assessed 09/28/24 09/28/24 08:28 Patient Tobacco Use Status Never used Tobacco 09/28/24 08:28 e-Cigarette/Vaping Use Never Used 09/28/24 08:28 PHQ-9: PHQ-9 Score PHQ-9: Total score 0 09/28/24 08:28 Depression Screening Interpretation: Negative Thrive Assessment: Date of Thrive Assessment Date Thrive assessed 09/28/24 09/28/24 08:28 Currently or been in a relationship where the following occur: No concerns reported Coding Level of Care Code Est Pt Prev Care 40-64y(68854) Diagnoses Physical exam Z00.00 Class 3 severe obesity with serious comorbidity and body mass index (BMI) of 40.0 to 44.9 in adult, unspecified obesity type E66.813; Z68.41 Obesity type: unspecified obesity type Obesity classification: adult class 3 (BMI >= 40) Serious obesity comorbidity presence: with serious comorbidity Body mass index: BMI 40.0-44.9 Obstructive sleep apnea syndrome G47.33 Sleep apnea type: obstructive Additional Codes NICOLE-7 Assessment Billing - NICOLE-7 Assessment Tool: NICOLE-7 Assessment 61184 ([id number]) PHQ-9 - 62083 - PHQ-9 Billing: Yes ([id number]) Assessment & Plan Assessment & Plan (1) Physical exam: Code(s): Z00.00 - Encounter for general adult medical examination without abnormal f indings Category: Medical (2) Obesity: Code(s): E66.9 - Obesity, unspecified Category: Medical Qualifiers: Obesity type: unspecified obesity type Obesity classification: adult class 3 (BMI >= 40) Serious obesity comorbidity presence: with serious comorbidity Body mass index: BMI 40.0-44.9 Qualified Code(s): E66.813 - Obesity, class 3; Z68.41 - Body mass index [BMI] 40.0-44.9, adult (3) Sleep apnea: Comment: No CPAP Code(s): G47.30 - Sleep apnea, unspecified Category: Medical Qualifiers: Sleep apnea type: obstructive Qualified Code(s): G47.33 - Obstructive sleep apnea (adult) (pediatric) Plan 44 year old for CPE Interval history reviewed Preventive measures for age discussed Labs and colonscopy ordered. Orders: Orders Complete Blood Count Auto Diff Today E66.9 - Obesity, unspecified, I10 - Essential (primary) hypertension, K59.09 - Other constipation, K76.0 - Fatty (ch [place] of) liver, not elsewhere classified, Z80.42 - Family history of malignant neoplasm of prostate Lipid Panel Today E66.9 - Obesity, unspecified, I10 - Essential (primary) hypertension, K59.09 - Other constipation, K76.0 - Fatty (change of) liver, not elsewhere classified, Z80.42 - Family history of malignant neoplasm of prostate Prostate Specific Antigen Today E66.9 - Obesity, unspecified, I10 - Essential (primary) hypertension, K59.09 - Other constipation, K76.0 - Fatty (change of) liver, not elsewhere classified, Z80.42 - Family history of malignant neoplasm of prostate Vitamin D 25-OH (D2 and D3) Today E53.8 - Deficiency of other specified B group vitamins Comprehensive Met. Panel Today E66.9 - Obesity, unspecified, I10 - Essential (primary) hypertension, K59.09 - Other constipation, K76.0 - Fatty (change of) liver, not elsewhere classified, Z80.42 - Family history of malignant neoplasm of prostate TSH reflex Free T4 Today E66.9 - Obesity, unspecified, I10 - Essential (primary) hypertension, K59.09 - Other constipation, K76.0 - Fatty (change of) liver, not elsewhere classified, Z80.42 - Family history of malignant neoplasm of prostate Vitamin B12 Today E53.8 - Deficiency of other specified B group vitamins Referrals Gastroenterology Referral Z12.11 - Encounter for screening for malignant neoplasm of colon, Z80.42 - Family history of malignant neoplasm of prostate Medications: Refilled terbinafine HCl 250 mg PO DAILY 14 tabs 0RF terbinafine HCl 250 mg PO DAILY 14 tabs 3RF
[2024-09-28 08:25] VITALS: BP 144/77; PULSE 60; RESP 16; TEMP 36.2; O2SAT 100; BMI 41.5
== END 2024-09-28 08:57 | disposition home or self-care (01) ==
LOC: HO.HMCFM 08:17
PROVIDERS: PCP Internal Medicine; Visit Provider Internal Medicine
DX: Z00.00 Encounter for general adult medical examination without abnormal findings (principal); E66.813 Obesity, class 3; Z68.41 Body mass index [BMI] 40.0-44.9, adult; G47.33 Obstructive sleep apnea (adult) (pediatric)

== ENCOUNTER → 2024-09-28 08:16 | Outpatient (BNVA) | payer OTHER, SELFPAY | PROVIDERS: PCP Internal Medicine; Visit Provider Internal Medicine | DX: Z00.00 Encounter for general adult medical examination without abnormal findings (principal); E66.813 Obesity, class 3; Z68.41 Body mass index [BMI] 40.0-44.9, adult; G47.33 Obstructive sleep apnea (adult) (pediatric); Z13.31 Encounter for screening for depression; Z13.39 Encounter for screening examination for other mental health and behavioral disorders | CPT/HCPCS: 96127 ==

== ENCOUNTER 2024-09-28 09:11 | Outpatient (REF) | payer OTHER, SELFPAY ==
[2024-09-28 11:22] LABS: MANUAL DIFF FLAG NO
[2024-09-28 11:35] LABS: Hematocrit 46.3 % (42.0-52.0); Hemoglobin 15.6 g/dl (14.0-18.0); Imm Gran Abs Auto 0.08 X10*3/uL (0.00-0.03); Imm Gran Pct Auto 1.3 % (0.0-0.4); Lymphocytes Absolute Auto 1.6 X10*3/uL (1.2-4.9); Mean Corpuscular HGB Conc 33.7 g/dl (31.0-36.0); Mean Corpuscular Hemoglobin 30.6 pg (27.0-33.0); Mean Corpuscular Volume 91.0 fL (80.0-98.0); NRBC Abs Auto 0.000 X10*3/uL (0.0-0.012); NRBC Pct Auto 0.0 /100WBC (0.0-0.2); Platelet Count 176 X10*3/uL (160-400); Red Blood Count 5.09 X10*6/uL (4.60-5.80); White Blood Count 6.1 X10*3/uL (4.8-10.8)
[2024-09-28 11:49] LABS: Alanine Aminotransferase 18 U/L (0-40); Albumin Level 4.3 g/dL (3.5-5.0); Alkaline Phosphatase 64 U/L (39-117); Anion Gap 12 (12-20); Aspartate Amino Transferase 20 U/L (5-37); Blood Urea Nitrogen 25 mg/dL (9-16); Calcium 8.9 mg/dL (8.4-10.2); Carbon Dioxide 30 mmol/L (22-29); Chloride 104 mmol/L (96-108); Cholesterol 168 mg/dL (<200); Estimated Glomerular Filt Rate > 60; HDL Cholesterol 64 mg/dL (>40); Potassium 4.0 mmol/L (3.3-5.1); Sodium 142 mmol/L (135-145); Total Protein 6.8 g/dL (6.5-8.0); Triglycerides 89 mg/dL (<150)
[2024-09-28 12:10] LABS: Prostate Specific Antigen 0.50 ng/mL (<0.05-4.0); Vitamin B12 378 pg/mL (200-900)
[2024-10-02 15:32] LABS: Vitamin D 25-OH, D2 <4 ng/mL; Vitamin D 25-OH, D3 27 ng/mL; Vitamin D 25-OH, Total 27 ng/mL (30-100)
== END 2024-09-28 09:12 | disposition home or self-care (01) ==
LOC: HO.WFDLDS 09:11
PROVIDERS: Visit Provider Internal Medicine
DX: I10 Essential (primary) hypertension (principal); E53.8 Deficiency of other specified B group vitamins; E66.9 Obesity, unspecified; K76.0 Fatty (change of) liver, not elsewhere classified; K59.09 Other constipation; Z80.42 Family history of malignant neoplasm of prostate
CPT/HCPCS: 36415; 80053; 80061; 82306; 82607; 84153; 84443; 85025